=== PATIENT | male | born 1945 | race Caucasian/White ===

== ENCOUNTER 2017-04-02 11:56 | Inpatient (IN) | payer MEDICARE, OTHER ==
[2017-04-02 12:08] VITALS: BP 101/60
[2017-04-02] MEDS ORDERED: Maalox 30 mL Cup PO PRN (12:20)
[2017-04-02] MEDS ORDERED: Magnesium Hydroxide (MOM) 30 mL UDC PO PRN (12:20)
--- NOTE | 2017-04-02 13:06 | Psych History & Physical ---
[facility] Psych History & Physical - Date of Admission Date of Admission: 04/02/17 - Identifying Data Identifying Data: This is a 72-year-old male currently homeless admitted here a 5150 for being gravely disabled. - Chief Complaint Chief Complaint: I do not know Informant: Patient - History of Present Illness History of Present Illness: This is the first psychiatric hospitalization is [facility]. This is a 62-year-old with reported to have been confused and wandering has been diagnosed had been placed on 5150% of the and has been [facility] emergency room where he was possible for stabilization chart is reviewed patient does interview patient continues to be confused and is not able to provide much of any information he has been mentioning that he is okay but tends to fall when concrete surface is not even patient is not currently on any psychotropic medications but however is reported that the patient has been treated for hypertension patient's sleep and appetite went to the hospitalization reported to be poor. - Psychiatric Evaluation Psychiatric Evaluation: CV mental status examination below Psych General Appearance: Older than stated age Psych Behavior: Alert, Cooperative Psych Speech: Normal in Rate and amount, Soft Psych Mood: Frustrated, Irritable Psych Affect: Anxious, Depressed Psych Thought Process: Circumstantial, [place], Tangential Psych Cognition: Confused Psych Insight: Impaired Psych Judgement: Impaired - Past Medical History Psych: Other (none) Current Medications: Current Medications Acetaminophen (Tylenol) 650 mg PO Q4HR PRN PRN Reason: Mild Pain / Temp above 100 Stop: 06/01/17 12:19 Al Hydrox/Mg Hydrox/Simethicone (Maalox) 30 ml PO Q4HR PRN PRN Reason: GI DISTRESS Stop: 06/01/17 12:19 Magnesium Hydroxide (Milk Of Magnesia) 30 ml PO HS PRN PRN Reason: Constipation Multivitamins/Vitamin C (Theragran) 1 tab PO DAILY HECTOR Stop: 06/02/17 08:59 Allergies/Adverse Reactions: Allergies Allergy/AdvReac Type Severity Reaction Status Date / Time No Known Allergies Allergy Verified 04/02/17 12:09 - Family History Family History: No Significant - Social History Social History: Homeless. - ROS Psychological ROS: Anxiety, Concentration difficulty, Irritability, Memory difficulties, Sleep Disturbances Neurological: Confusion - Physical Examination Physical Exam: Physical examination is requested to be done by Dr. Desai - Vitals and I&O Vitals and I&O: Vital Signs Temp Pulse Resp BP 101/60 04/02/17 12:08 Pulse Ox Intake & Output 04/01/17 04/02/17 04/02/17 18:59 06:59 18:59 Weight (lbs) 72.575 kg - Impressions Impressions: Psychosis unspecified [place] I: Dementia and behavioral changes secondary to [place] II: None [place] III: As per Dr. Desai - Treatment/Plan Treatment/Plan: Plan to start the patient on a low-dose of Seroquel to continue Ativan and Ambien on a when necessary basis. Patient is medically provided with individual as well as group counseling's. The shoe caser is going to be involved in finding a placement for this patient is midline to stay is 5-7 days discharge criteria when patient is no longer a threat to self or others thank you this is end of dictation
--- NOTE | 2017-04-02 16:44 | Consultation ---
Consult Note - Consult Note Service Date: 04/02/17 Consult Note: PHYSICIAN Consultation Note: Date of Admission: 04/02/17 Purpose of Consultation: Internal medicine Chief Complaint: Acute psychosis History of Present Illness: 7-3 year old male was reported to be missing. He was found wandering in the street under the the hot weather. He was subsequently brought to [facility]. He underwent extensive workup. He was subsequently transferred to [facility] geropsychiatric unit Past Medical History: Hypertension, Alzheimer dementia, glaucoma Allergies Allergy/AdvReac Type Severity Reaction Status Date / Time No Known Allergies Allergy Verified 04/02/17 12:09 Vital Signs Temp Pulse Resp BP 101/60 04/02/17 12:08 Pulse Ox Intake & Output 04/01/17 04/02/17 04/02/17 18:59 06:59 18:59 Weight (lbs) 72.575 kg Laboratory Results - last 24 hr 04/02/17 15:53 POC Glucose 108 H Current Medications Generic Name Dose Route Start Last Admin Trade Name Freq PRN Reason Stop Dose Admin Acetaminophen 650 mg 04/02/17 12:20 Tylenol PO 06/01/17 12:19 Q4HR PRN Mild Pain / Temp above 100 Al Hydrox/Mg Hydrox/Simethicone 30 ml 04/02/17 12:20 Maalox PO 06/01/17 12:19 Q4HR PRN GI DISTRESS Magnesium Hydroxide 30 ml 04/02/17 12:20 Milk Of Magnesia PO HS PRN Constipation Multivitamins/Vitamin C 1 tab 04/03/17 09:00 Theragran PO 06/02/17 08:59 DAILY HECTOR Quetiapine Fumarate 12.5 mg 04/02/17 21:00 Seroquel PO 06/01/17 20:59 HS HECTOR Protocol Review of Systems: A 12 point ROS was reviewed with the pertinent positive and negatives noted in the HPI. Physical Exam: General: Alert and Oriented X 1, No Acute Distress HEENT: EOMI Bilaterally, PERRLA Bilaterally, Head is normocephalic, small abrasion on bridge of nose. Cardio: +S1/S2 Auscultated, RRR, no murmurs/rubs/gallops noted Respiratory: Clear to Auscultate Bilaterally Abdominal: Soft, Nondistended, Nontender to palpation x 4 quadrants Genital/Urinary: Normal-appearing male genitalia Extremities: No Edema noted in the lower extremities Neurological: No Focal Deficits noted. 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
[2017-04-03 08:10] LABS: ANION GAP 5.7 (7.0-16.0); CARBON DIOXIDE 26.2 mEq/L (21.0-31.0); POTASSIUM SERUM 3.9 mEq/L (3.5-5.1)
[2017-04-03] MEDS: Multivitamin Tab PO SCH (09:09)
--- NOTE | 2017-04-03 10:21 | Psych Progress Note ---
[facility] Psych Progress Note - Intro Date of Progress Note: 04/03/17 - Assessment Assessment: Still depressed. - Vitals, I&O Vitals: Vital Signs - 24 hr 04/02/17 04/02/17 04/02/17 12:08 17:05 18:17 Temp 97.2 F 97.9 F HR 64 72 RR 18 20 BP 101/60 101/60 106/53 O2 Sat % 93 97 I&O: Intake & Output 04/01/17 04/02/17 04/03/17 04/04/17 06:59 06:59 06:59 06:59 Intake Total 600 Balance 600 Weight (lbs) 72.575 kg Medication Education: providede. - ROS ROS: Done Psychological ROS: Report: Anxiety, Depression, Sleep Disturbances Neurological: Report: No Significant - Objective Psych Objective: See below. Psych General Appearance: Report: No acute distress, Older than stated age Psych Behavior: Report: Alert, Calm, Cooperative Psych Speech: Report: Normal in Rate and amount, Soft Psych Mood: Report: Anxious, Depressed, Sad Psych Affect: Report: Anxious, Constricted, Depressed Psych Thought Process: Report: [place], Ruminative Psych Cognition: Report: Confused Psych Insight: Report: Impaired Psych Judgement: Report: Impaired - Plan Plan: as per orders. - Review of Relevant Data Review of Relevant Data: I have reviewed the following items and time jenny (where applicable) has been applied. Psych Data Reviewed: Meds - Diagnosis Diagnosis: Psychosis unspecified. - Medications Current Medications: Current Medications Acetaminophen (Tylenol) 650 mg PO Q4HR PRN PRN Reason: Mild Pain / Temp above 100 Stop: 06/01/17 12:19 Al Hydrox/Mg Hydrox/Simethicone (Maalox) 30 ml PO Q4HR PRN PRN Reason: GI DISTRESS Stop: 06/01/17 12:19 Lorazepam (Ativan) 0.5 mg PO Q4HR PRN; Protocol PRN Reason: Agitation Stop: 06/02/17 07:41 Magnesium Hydroxide (Milk Of Magnesia) 30 ml PO HS PRN PRN Reason: Constipation Multivitamins/Vitamin C (Theragran) 1 tab PO DAILY HECTOR Stop: 06/02/17 08:59 Last Admin: 04/03/17 09:09 Dose: 1 tab Quetiapine Fumarate (Seroquel) 12.5 mg PO HS HECTOR PRN Reason: Protocol Stop: 06/01/17 20:59 Zolpidem Tartrate (Ambien) 5 mg PO HS PRN PRN Reason: Insomnia Stop: 06/02/17 07:44
--- NOTE | 2017-04-03 16:47 | General Progress Note ---
Subjective - Review of Systems Service Date: 04/03/17 Subjective: Remains depressed Objective - Results Result Diagrams: 04/03/17 07:26 Recent Labs: Laboratory Last Values Sodium 134 mEq/L (136-145) L 04/03/17 07:26 Potassium 3.9 mEq/L (3.5-5.1) 04/03/17 07:26 Chloride 106 mEq/L (98-107) 04/03/17 07:26 Carbon Dioxide 26.2 mEq/L (21.0-31.0) 04/03/17 07:26 Anion Gap 5.7 (7.0-16.0) L 04/03/17 07:26 POC Glucose 108 MG/DL (70 - 105) H 04/02/17 15:53 Triglycerides 131 mg/dL (<150) 04/03/17 07:26 Cholesterol 197 mg/dL (<200) 04/03/17 07:26 LDL Cholesterol Direct 135 mg/dL (75-193) 04/03/17 07:26 HDL Cholesterol 32 mg/dL (23-92) 04/03/17 07:26 TSH 1.16 uIU/ml (0.34-5.60) 04/03/17 07:26 - Physical Exam Vitals and I&O: Vital Signs Temp 97.9 F 04/02/17 18:17 Pulse 65 04/03/17 15:46 Resp 18 04/03/17 15:46 BP 106/53 04/02/17 18:17 Pulse Ox 97 04/02/17 18:17 Intake & Output 04/02/17 04/03/17 04/03/17 18:59 06:59 18:59 Intake Total 600 Balance 600 Weight (lbs) 72.575 kg Intake: Oral 600 Other: # Voids 3 # Bowel Movements 0 Active Medications: Current Medications Acetaminophen (Tylenol) 650 mg PO Q4HR PRN PRN Reason: Mild Pain / Temp above 100 Stop: 06/01/17 12:19 Al Hydrox/Mg Hydrox/Simethicone (Maalox) 30 ml PO Q4HR PRN PRN Reason: GI DISTRESS Stop: 06/01/17 12:19 Lorazepam (Ativan) 0.5 mg PO Q4HR PRN; Protocol PRN Reason: Agitation Stop: 06/02/17 07:41 Magnesium Hydroxide (Milk Of Magnesia) 30 ml PO HS PRN PRN Reason: Constipation Multivitamins/Vitamin C (Theragran) 1 tab PO DAILY HECTOR Stop: 06/02/17 08:59 Last Admin: 04/03/17 09:09 Dose: 1 tab Quetiapine Fumarate (Seroquel) 12.5 mg PO HS HECTOR PRN Reason: Protocol Stop: 06/01/17 20:59 Zolpidem Tartrate (Ambien) 5 mg PO HS PRN PRN Reason: Insomnia Stop: 06/02/17 07:44 General: Alert, No acute distress HEENT: Atraumatic, PERRLA, EOMI, Mucous membr. moist/pink Neck: Supple, +2 carotid pulse wo bruit Cardiovascular: Regular rate, Normal S1, Normal S2 Lungs: Clear to auscultation Abdomen: Bowel sounds, Soft Extremities: no Edema Neurological: Sensation intact Skin: no Rash Psych/Mental Status: Other (depressed) Assessment/Plan - Assessment Assessment: Acute decompensation of psychosis Essential hypertension Dementia with behavior modification Glaucoma Essential hypertension Acute kidney injury-resolved - Plan Plan: Lab - Result Diagrams 04/03/17 07:26 Current Medications Acetaminophen (Tylenol) 650 mg PO Q4HR PRN PRN Reason: Mild Pain / Temp above 100 Stop: 06/01/17 12:19 Al Hydrox/Mg Hydrox/Simethicone (Maalox) 30 ml PO Q4HR PRN PRN Reason: GI DISTRESS Stop: 06/01/17 12:19 Lorazepam (Ativan) 0.5 mg PO Q4HR PRN; Protocol PRN Reason: Agitation Stop: 06/02/17 07:41 Magnesium Hydroxide (Milk Of Magnesia) 30 ml PO HS PRN PRN Reason: Constipation Multivitamins/Vitamin C (Theragran) 1 tab PO DAILY HECTOR Stop: 06/02/17 08:59 Last Admin: 04/03/17 09:09 Dose: 1 tab Quetiapine Fumarate (Seroquel) 12.5 mg PO HS HECTOR PRN Reason: Protocol Stop: 06/01/17 20:59 Zolpidem Tartrate (Ambien) 5 mg PO HS PRN PRN Reason: Insomnia Stop: 06/02/17 07:44 Remains clinically stable Continue psych meds
[2017-04-04 08:42] LABS: % BASOPHILS 0.5 % (0.0-2.0); % EOSINOPHILS 1.6 % (0.0-5.0); % LYMPHOCYTES 24.3 % (20.0-50.0); % MONOCYTES 8.7 % (2.0-10.0); % NEUTROPHILS 64.9 % (40.0-80.0); HEMATOCRIT 35.3 % (39.0-49.0); MEAN CELL VOLUME 89.5 fl (80-99); MEAN CORPUSCULAR HEMOGLOBIN 30.4 pg (27.0-31.0); MEAN PLATELET VOLUME 8.4 fl; NEUTROPHILE ABSOLUTE 3.5 Th/cmm (1.8-8.0); PLATELET COUNT 148 Th/cmm (150-400); RED BLOOD COUNT 3.95 Mil/cmm (3.80-5.80); RED CELL DISTRIBUTION WIDTH 12.8 % (11.5-20.0); WHITE BLOOD COUNT 5.4 Th/cmm (4.8-10.8)
[2017-04-04 09:06] LABS: ALB/GLOB RATIO 1.6 (1.0-1.8); ALKALINE PHOSPHATASE 52 U/L (34-104); ANION GAP 8.1 (7.0-16.0); BILIRUBIN,TOTAL 0.3 mg/dL (0.3-1.0); BUN - UREA NITROGEN 20 mg/dL (7-25); BUN/CREATININE RATIO 22.2; CALCIUM SERUM 8.6 mg/dL (8.6-10.3); CHLORIDE 106 mEq/L (98-107); CREATININE - SERUM 0.9 mg/dL (0.7-1.3); GLUCOSE 88 mg/dL (70-105); POTASSIUM SERUM 4.1 mEq/L (3.5-5.1); SGOT 19 U/L (13-39); SGPT/ALT 13 U/L (7-52); SODIUM SERUM 136 mEq/L (136-145)
--- NOTE | 2017-04-04 09:19 | Psych Progress Note ---
[facility] Psych Progress Note - Intro Date of Progress Note: 04/04/17 - Assessment Assessment: I am depressed. - Vitals, I&O Vitals: Vital Signs - 24 hr 04/03/17 04/03/17 04/04/17 15:46 20:00 05:22 Temp 98.5 F 97.5 F HR 74 57 HR [Left Radial 65 ] RR 18 19 20 BP 98/61 91/53 O2 Sat % 96 95 I&O: Intake & Output 04/02/17 04/03/17 04/04/17 04/05/17 06:59 06:59 06:59 06:59 Intake Total 600 Balance 600 Weight (lbs) 72.575 kg - ROS Psychological ROS: Report: Anxiety, Depression, Memory difficulties, Sleep Disturbances Neurological: Report: No Significant - Objective Psych General Appearance: Report: No acute distress, Older than stated age Psych Behavior: Report: Alert, Cooperative Psych Speech: Report: Delayed, Soft Psych Mood: Report: Anxious, Depressed Psych Affect: Report: Anxious, Depressed Psych Thought Process: Report: Circumstantial Psych Cognition: Report: Confused Psych Insight: Report: Impaired Psych Judgement: Report: Impaired - Plan Plan: To continue current meds and follow up. - Review of Relevant Data Review of Relevant Data: I have reviewed the following items and time jenny (where applicable) has been applied. Psych Data Reviewed: Meds - Diagnosis Diagnosis: Psychosis - Medications Current Medications: Current Medications Acetaminophen (Tylenol) 650 mg PO Q4HR PRN PRN Reason: Mild Pain / Temp above 100 Stop: 06/01/17 12:19 Al Hydrox/Mg Hydrox/Simethicone (Maalox) 30 ml PO Q4HR PRN PRN Reason: GI DISTRESS Stop: 06/01/17 12:19 Lorazepam (Ativan) 0.5 mg PO Q4HR PRN; Protocol PRN Reason: Agitation Stop: 06/02/17 07:41 Magnesium Hydroxide (Milk Of Magnesia) 30 ml PO HS PRN PRN Reason: Constipation Multivitamins/Vitamin C (Theragran) 1 tab PO DAILY HECTOR Stop: 06/02/17 08:59 Last Admin: 04/03/17 09:09 Dose: 1 tab Quetiapine Fumarate (Seroquel) 12.5 mg PO HS HECTOR PRN Reason: Protocol Stop: 06/01/17 20:59 Last Admin: 04/03/17 20:40 Dose: 12.5 mg Zolpidem Tartrate (Ambien) 5 mg PO HS PRN PRN Reason: Insomnia Stop: 06/02/17 07:44
[2017-04-04] MEDS: Multivitamin Tab PO SCH (10:28)
[2017-04-04 12:10] LABS: HEP B CORE IGM Negative (Negative); HEP C ANTIBODY <0.1 s/co ratio (0.0-0.9)
[2017-04-05] MEDS: Multivitamin Tab PO SCH (09:15)
--- NOTE | 2017-04-05 10:56 | Psych Progress Note ---
[facility] Psych Progress Note - Intro Date of Progress Note: 04/05/17 - Assessment Assessment: I am depressed. - Vitals, I&O Vitals: Vital Signs - 24 hr 04/04/17 04/04/17 04/05/17 14:49 20:00 06:31 Temp 97.3 F 97 F 98 F HR 76 60 70 RR 18 19 20 BP 112/68 95/59 97/56 O2 Sat % 96 97 95 I&O: Intake & Output 04/03/17 04/04/17 04/05/17 04/06/17 06:59 06:59 06:59 06:59 Intake Total 600 1920 Balance 600 1920 Weight (lbs) 72.575 kg - ROS Psychological ROS: Report: Anxiety, Depression, Memory difficulties Neurological: Report: Confusion - Objective Psych Behavior: Report: Alert, Calm Psych Speech: Report: Normal in Rate and amount Psych Mood: Report: Depressed Psych Affect: Report: Anxious, Constricted, Depressed Psych Thought Process: Report: Circumstantial, [place] Psych Cognition: Report: Confused, Short term memory impairment Psych Insight: Report: Impaired Psych Judgement: Report: Impaired - Plan Plan: To continue current meds and follow up. - Review of Relevant Data Review of Relevant Data: I have reviewed the following items and time jenny (where applicable) has been applied. Psych Data Reviewed: Meds - Diagnosis Diagnosis: Psychosis - Medications Current Medications: Current Medications Acetaminophen (Tylenol) 650 mg PO Q4HR PRN PRN Reason: Mild Pain / Temp above 100 Stop: 06/01/17 12:19 Al Hydrox/Mg Hydrox/Simethicone (Maalox) 30 ml PO Q4HR PRN PRN Reason: GI DISTRESS Stop: 06/01/17 12:19 Lorazepam (Ativan) 0.5 mg PO Q4HR PRN; Protocol PRN Reason: Agitation Stop: 06/02/17 07:41 Magnesium Hydroxide (Milk Of Magnesia) 30 ml PO HS PRN PRN Reason: Constipation Multivitamins/Vitamin C (Theragran) 1 tab PO DAILY HECTOR Stop: 06/02/17 08:59 Last Admin: 04/05/17 09:15 Dose: 1 tab Mupirocin (Bactroban Oint) 1 appl NS BID HECTOR Stop: 04/09/17 17:01 Last Admin: 04/05/17 09:16 Dose: 1 appl Quetiapine Fumarate (Seroquel) 12.5 mg PO HS HECTOR PRN Reason: Protocol Stop: 06/01/17 20:59 Last Admin: 04/04/17 20:24 Dose: 12.5 mg Zolpidem Tartrate (Ambien) 5 mg PO HS PRN PRN Reason: Insomnia Stop: 06/02/17 07:44
[2017-04-06] MEDS: Multivitamin Tab PO SCH (08:29)
--- NOTE | 2017-04-06 10:47 | Psych Progress Note ---
[facility] Psych Progress Note - Intro Date of Progress Note: 04/06/17 - Assessment Assessment: I am depressed. - Vitals, I&O Vitals: Vital Signs - 24 hr 04/05/17 04/05/17 04/06/17 10:57 20:00 06:33 Temp 97.6 F HR 72 RR 20 20 20 BP 98/62 O2 Sat % 96 I&O: Intake & Output 04/04/17 04/05/17 04/06/17 04/07/17 06:59 06:59 06:59 06:59 Intake Total 1920 120 Balance 1920 120 - ROS Psychological ROS: Report: Anxiety, Depression, Irritability - Objective Psych General Appearance: Report: No acute distress, Older than stated age Psych Behavior: Report: Alert, Cooperative Psych Speech: Report: Normal in Rate and amount, Soft Psych Mood: Report: Anxious, Depressed Psych Affect: Report: [place] content of speech, Sad Psych Thought Process: Report: Circumstantial Psych Cognition: Report: Confused Psych Insight: Report: Impaired Psych Judgement: Report: Impaired - Plan Plan: To continue current meds and increase the dose of Seroquel. - Review of Relevant Data Review of Relevant Data: I have reviewed the following items and time jenny (where applicable) has been applied. Psych Data Reviewed: Meds - Diagnosis Diagnosis: Psychosis - Medications Current Medications: Current Medications Acetaminophen (Tylenol) 650 mg PO Q4HR PRN PRN Reason: Mild Pain / Temp above 100 Stop: 06/01/17 12:19 Al Hydrox/Mg Hydrox/Simethicone (Maalox) 30 ml PO Q4HR PRN PRN Reason: GI DISTRESS Stop: 06/01/17 12:19 Lorazepam (Ativan) 0.5 mg PO Q4HR PRN; Protocol PRN Reason: Agitation Stop: 06/02/17 07:41 Magnesium Hydroxide (Milk Of Magnesia) 30 ml PO HS PRN PRN Reason: Constipation Multivitamins/Vitamin C (Theragran) 1 tab PO DAILY HECTOR Stop: 06/02/17 08:59 Last Admin: 04/06/17 08:29 Dose: 1 tab Mupirocin (Bactroban Oint) 1 appl NS BID HECTOR Stop: 04/09/17 17:01 Last Admin: 04/06/17 08:29 Dose: 1 appl Quetiapine Fumarate (Seroquel) 25 mg PO HS HECTOR PRN Reason: Protocol Stop: 06/01/17 20:59 Zolpidem Tartrate (Ambien) 5 mg PO HS PRN PRN Reason: Insomnia Stop: 06/02/17 07:44
[2017-04-07] MEDS: Multivitamin Tab PO SCH (08:25)
--- NOTE | 2017-04-07 12:19 | Psych Progress Note ---
[facility] Psych Progress Note - Intro Date of Progress Note: 04/07/17 - Assessment Assessment: Still depressed. - Vitals, I&O Vitals: Vital Signs - 24 hr 04/06/17 04/06/17 04/07/17 14:00 19:57 05:46 Temp 97.8 F 98.1 F 98.1 F HR 90 81 62 RR 20 20 19 BP 103/57 110/66 90/53 O2 Sat % 97 95 94 I&O: Intake & Output 04/05/17 04/06/17 04/07/17 04/08/17 06:59 06:59 06:59 06:59 Intake Total 4570 055 2536 Balance 1446 651 0865 - ROS ROS: Done Psychological ROS: Report: Anxiety, Depression, Sleep Disturbances Neurological: Report: Gait Disturbance, Memory Loss - Objective Psych Objective: See below. Psych General Appearance: Report: No acute distress, Older than stated age Psych Behavior: Report: Alert, Calm, Cooperative Psych Speech: Report: Normal in Rate and amount, Soft Psych Mood: Report: Anxious, Depressed, Sad Psych Affect: Report: Anxious, Constricted, Depressed Psych Thought Process: Report: [place], Ruminative Psych Cognition: Report: Confused Psych Insight: Report: Impaired Psych Judgement: Report: Impaired - Plan Plan: Plan to contine curent meds and follow up. - Review of Relevant Data Review of Relevant Data: I have reviewed the following items and time jenny (where applicable) has been applied. Psych Data Reviewed: Meds - Medications Current Medications: Current Medications Acetaminophen (Tylenol) 650 mg PO Q4HR PRN PRN Reason: Mild Pain / Temp above 100 Stop: 06/01/17 12:19 Al Hydrox/Mg Hydrox/Simethicone (Maalox) 30 ml PO Q4HR PRN PRN Reason: GI DISTRESS Stop: 06/01/17 12:19 Lorazepam (Ativan) 0.5 mg PO Q4HR PRN; Protocol PRN Reason: Agitation Stop: 06/02/17 07:41 Magnesium Hydroxide (Milk Of Magnesia) 30 ml PO HS PRN PRN Reason: Constipation Multivitamins/Vitamin C (Theragran) 1 tab PO DAILY HECOTR Stop: 06/02/17 08:59 Last Admin: 04/07/17 08:25 Dose: 1 tab Mupirocin (Bactroban Oint) 1 appl NS BID HECTOR Stop: 04/09/17 17:01 Last Admin: 04/07/17 08:26 Dose: 1 appl Quetiapine Fumarate (Seroquel) 25 mg PO HS HECTOR PRN Reason: Protocol Stop: 06/01/17 20:59 Last Admin: 04/06/17 21:16 Dose: 25 mg Zolpidem Tartrate (Ambien) 5 mg PO HS PRN PRN Reason: Insomnia Stop: 06/02/17 07:44
[2017-04-08] MEDS: Multivitamin Tab PO SCH (08:08)
--- NOTE | 2017-04-08 09:37 | Psych Progress Note ---
[facility] Psych Progress Note - Intro Date of Progress Note: 04/08/17 - Assessment Assessment: Still depressed and confused. - Vitals, I&O Vitals: Vital Signs - 24 hr 04/07/17 04/07/17 04/08/17 14:00 20:51 07:00 Temp 97.9 F 97.3 F 98.2 F HR 71 73 89 RR 20 20 19 BP 107/61 116/69 95/52 O2 Sat % 96 18 97 I&O: Intake & Output 04/06/17 04/07/17 04/08/17 04/09/17 06:59 06:59 06:59 06:59 Intake Total 120 1180 1000 Balance 120 1180 1000 - ROS ROS: Done Psychological ROS: Report: Anxiety, Depression, Sleep Disturbances Neurological: Report: Gait Disturbance, Memory Loss - Objective Psych Objective: See below. Psych General Appearance: Report: No acute distress, Older than stated age Psych Behavior: Report: Alert, Calm, Cooperative Psych Speech: Report: Normal in Rate and amount, Soft Psych Mood: Report: Anxious, Depressed, Sad Psych Affect: Report: Anxious, Constricted, Depressed Psych Thought Process: Report: [place], Ruminative Psych Cognition: Report: Confused Psych Insight: Report: Impaired Psych Judgement: Report: Impaired - Plan Plan: Plan to continue supportive tx and current meds. Patient is awaiting placement. - Review of Relevant Data Review of Relevant Data: I have reviewed the following items and time jenny (where applicable) has been applied. Psych Data Reviewed: Meds - Medications Current Medications: Current Medications Acetaminophen (Tylenol) 650 mg PO Q4HR PRN PRN Reason: Mild Pain / Temp above 100 Stop: 06/01/17 12:19 Al Hydrox/Mg Hydrox/Simethicone (Maalox) 30 ml PO Q4HR PRN PRN Reason: GI DISTRESS Stop: 06/01/17 12:19 Lorazepam (Ativan) 0.5 mg PO Q4HR PRN; Protocol PRN Reason: Agitation Stop: 06/02/17 07:41 Magnesium Hydroxide (Milk Of Magnesia) 30 ml PO HS PRN PRN Reason: Constipation Multivitamins/Vitamin C (Theragran) 1 tab PO DAILY HECTOR Stop: 06/02/17 08:59 Last Admin: 04/08/17 08:08 Dose: 1 tab Mupirocin (Bactroban Oint) 1 appl NS BID HECTOR Stop: 04/09/17 17:01 Last Admin: 04/08/17 08:08 Dose: 1 appl Quetiapine Fumarate (Seroquel) 25 mg PO HS HECTOR PRN Reason: Protocol Stop: 06/01/17 20:59 Last Admin: 04/07/17 21:05 Dose: 25 mg Zolpidem Tartrate (Ambien) 5 mg PO HS PRN PRN Reason: Insomnia Stop: 06/02/17 07:44
[2017-04-09] MEDS: Multivitamin Tab PO SCH (08:37)
--- NOTE | 2017-04-09 12:49 | Psych Progress Note ---
[facility] Psych Progress Note - Intro Date of Progress Note: 04/09/17 - Assessment Assessment: Reports to be doing a little better. - Vitals, I&O Vitals: Vital Signs - 24 hr 04/08/17 04/09/17 15:48 06:57 Temp 97.8 F 97.5 F HR 68 72 RR 20 19 BP 109/57 106/55 O2 Sat % 97 97 I&O: Intake & Output 04/07/17 04/08/17 04/09/17 04/10/17 06:59 06:59 06:59 06:59 Intake Total 1180 1000 950 Balance 1180 1000 950 - ROS ROS: Done Psychological ROS: Report: Anxiety, Depression, Sleep Disturbances Neurological: Report: Gait Disturbance, Memory Loss - Objective Psych Objective: See below. Psych General Appearance: Report: No acute distress, Older than stated age, Disheveled Psych Behavior: Report: Alert, Calm, Cooperative Psych Speech: Report: Normal in Rate and amount, Soft Psych Mood: Report: Anxious, Depressed, Pensive, Sad Psych Affect: Report: Anxious, Constricted, DEPRESSED Psych Thought Process: Report: Paranoid, Confabulation Psych Cognition: Report: Confused Psych Insight: Report: Impaired Psych Judgement: Report: Impaired - Plan Plan: Plan to continue supportive tx and current meds. Patient is awaiting placement. - Review of Relevant Data Review of Relevant Data: I have reviewed the following items and time jenny (where applicable) has been applied. Psych Data Reviewed: Meds - Medications Current Medications: Current Medications Acetaminophen (Tylenol) 650 mg PO Q4HR PRN PRN Reason: Mild Pain / Temp above 100 Stop: 06/01/17 12:19 Al Hydrox/Mg Hydrox/Simethicone (Maalox) 30 ml PO Q4HR PRN PRN Reason: GI DISTRESS Stop: 06/01/17 12:19 Lorazepam (Ativan) 0.5 mg PO Q4HR PRN; Protocol PRN Reason: Agitation Stop: 06/02/17 07:41 Magnesium Hydroxide (Milk Of Magnesia) 30 ml PO HS PRN PRN Reason: Constipation Multivitamins/Vitamin C (Theragran) 1 tab PO DAILY HECTOR Stop: 06/02/17 08:59 Last Admin: 04/09/17 08:37 Dose: 1 tab Mupirocin (Bactroban Oint) 1 appl NS BID HECTOR Stop: 04/09/17 17:01 Last Admin: 04/09/17 08:37 Dose: 1 appl Quetiapine Fumarate (Seroquel) 25 mg PO HS HECTOR PRN Reason: Protocol Stop: 06/01/17 20:59 Last Admin: 04/08/17 21:04 Dose: 25 mg Zolpidem Tartrate (Ambien) 5 mg PO HS PRN PRN Reason: Insomnia Stop: 06/02/17 07:44
[2017-04-10] MEDS: Multivitamin Tab PO SCH (08:47)
--- NOTE | 2017-04-10 10:45 | Psych Progress Note ---
[facility] Psych Progress Note - Intro Date of Progress Note: 04/10/17 - Assessment Assessment: I am okay. - Vitals, I&O Vitals: Vital Signs - 24 hr 04/09/17 04/10/17 20:51 07:01 Temp 97 F 97.6 F HR 73 70 RR 18 18 BP 104/58 108/63 O2 Sat % 97 97 I&O: Intake & Output 04/08/17 04/09/17 04/10/17 04/11/17 06:59 06:59 06:59 06:59 Intake Total 1000 950 Balance 1000 950 - ROS ROS: Done Psychological ROS: Report: Anxiety, Depression, Sleep Disturbances Neurological: Report: Gait Disturbance, Memory Loss - Objective Psych Objective: See below. Psych General Appearance: Report: No acute distress, Older than stated age, Disheveled Psych Behavior: Report: Alert, Calm, Cooperative Psych Speech: Report: Normal in Rate and amount, Soft Psych Mood: Report: Anxious, Dysthymic, Sad Psych Affect: Report: Anxious, Constricted, Mood-congruent Psych Thought Process: Report: Paranoid, Confabulation Psych Cognition: Report: Confused Psych Insight: Report: Impaired Psych Judgement: Report: Impaired - Plan Plan: Plan to continue supportive tx and current meds. Patient is awaiting placement. - Review of Relevant Data Review of Relevant Data: I have reviewed the following items and time jenny (where applicable) has been applied. Psych Data Reviewed: Meds - Medications Current Medications: Current Medications Acetaminophen (Tylenol) 650 mg PO Q4HR PRN PRN Reason: Mild Pain / Temp above 100 Stop: 06/01/17 12:19 Al Hydrox/Mg Hydrox/Simethicone (Maalox) 30 ml PO Q4HR PRN PRN Reason: GI DISTRESS Stop: 06/01/17 12:19 Lorazepam (Ativan) 0.5 mg PO Q4HR PRN; Protocol PRN Reason: Agitation Stop: 06/02/17 07:41 Magnesium Hydroxide (Milk Of Magnesia) 30 ml PO HS PRN PRN Reason: Constipation Multivitamins/Vitamin C (Theragran) 1 tab PO DAILY HECTOR Stop: 06/02/17 08:59 Last Admin: 04/10/17 08:47 Dose: 1 tab Quetiapine Fumarate (Seroquel) 25 mg PO HS HECTOR PRN Reason: Protocol Stop: 06/01/17 20:59 Last Admin: 04/09/17 20:52 Dose: 25 mg Zolpidem Tartrate (Ambien) 5 mg PO HS PRN PRN Reason: Insomnia Stop: 06/02/17 07:44
[2017-04-11] MEDS: Multivitamin Tab PO SCH (08:28)
--- NOTE | 2017-04-11 09:41 | Psych Progress Note ---
[facility] Psych Progress Note - Intro Date of Progress Note: 04/11/17 - Assessment Assessment: I am okay. - Vitals, I&O Vitals: Vital Signs - 24 hr 04/10/17 04/10/17 04/10/17 14:00 15:43 20:00 Temp 98 F HR 66 HR [Left Radial 70 70 ] RR 20 18 18 BP 88/57 O2 Sat % 100 04/11/17 06:33 Temp 97.1 F HR 80 HR [Left Radial ] RR 20 BP 92/59 O2 Sat % 95 I&O: Intake & Output 04/09/17 04/10/17 04/11/17 04/12/17 06:59 06:59 06:59 06:59 Intake Total 950 1920 Balance 950 1920 - ROS ROS: Done Psychological ROS: Report: Anxiety, Depression, Sleep Disturbances Neurological: Report: Gait Disturbance, Memory Loss - Objective Psych Objective: See below. Psych General Appearance: Report: No acute distress, Older than stated age, Disheveled Psych Behavior: Report: Alert, Calm, Cooperative Psych Speech: Report: Normal in Rate and amount, Soft Psych Mood: Report: Anxious, Dysthymic, Sad Psych Affect: Report: Anxious, Constricted, Mood-congruent Psych Thought Process: Report: Paranoid, Confabulation Psych Cognition: Report: Confused Psych Insight: Report: Impaired Psych Judgement: Report: Impaired - Plan Plan: Plan to continue supportive tx and current meds. Patient is awaiting placement. - Review of Relevant Data Review of Relevant Data: I have reviewed the following items and time jenny (where applicable) has been applied. Psych Data Reviewed: Meds - Medications Current Medications: Current Medications Acetaminophen (Tylenol) 650 mg PO Q4HR PRN PRN Reason: Mild Pain / Temp above 100 Stop: 06/01/17 12:19 Al Hydrox/Mg Hydrox/Simethicone (Maalox) 30 ml PO Q4HR PRN PRN Reason: GI DISTRESS Stop: 06/01/17 12:19 Magnesium Hydroxide (Milk Of Magnesia) 30 ml PO HS PRN PRN Reason: Constipation Multivitamins/Vitamin C (Theragran) 1 tab PO DAILY HECTOR Stop: 06/02/17 08:59 Last Admin: 04/11/17 08:28 Dose: 1 tab Quetiapine Fumarate (Seroquel) 25 mg PO HS HECTOR PRN Reason: Protocol Stop: 06/01/17 20:59 Last Admin: 04/10/17 20:14 Dose: 25 mg
[2017-04-12] MEDS: Multivitamin Tab PO SCH (08:34)
--- NOTE | 2017-04-12 18:34 | Psych Progress Note ---
Psych Progress Note - Intro Date of Progress Note: 04/12/17 - Assessment Assessment: I am okay. I need a place to stay. - Vitals, I&O Vitals: Vital Signs - 24 hr 04/11/17 04/12/17 04/12/17 20:53 05:52 16:00 Temp 98.3 F 98.2 F 98.4 F HR 83 64 67 RR 18 20 20 BP 118/68 101/57 103/52 O2 Sat % 96 95 96 I&O: Intake & Output 04/10/17 04/11/17 04/12/17 04/13/17 06:59 06:59 06:59 06:59 Intake Total 1920 1180 950 Balance 1920 1180 950 - ROS ROS: Done Psychological ROS: Report: Anxiety, Depression, Sleep Disturbances Neurological: Report: Gait Disturbance, Memory Loss - Objective Psych Objective: See below. Psych General Appearance: Report: No acute distress, Older than stated age, Disheveled Psych Behavior: Report: Alert, Calm, Cooperative Psych Speech: Report: Normal in Rate and amount, Soft Psych Mood: Report: Angry, Dysthymic, Irritable Psych Affect: Report: Anxious, Constricted, Mood-congruent Psych Thought Process: Report: Paranoid, Confabulation Psych Cognition: Report: Unchanged from previous exam Psych Insight: Report: Impaired Psych Judgement: Report: Impaired - Plan Plan: Plan to continue supportive tx and current meds. Patient is awaiting placement. - Review of Relevant Data Review of Relevant Data: I have reviewed the following items and time jenny (where applicable) has been applied. Psych Data Reviewed: Meds - Medications Current Medications: Current Medications Acetaminophen (Tylenol) 650 mg PO Q4HR PRN PRN Reason: Mild Pain / Temp above 100 Stop: 06/01/17 12:19 Al Hydrox/Mg Hydrox/Simethicone (Maalox) 30 ml PO Q4HR PRN PRN Reason: GI DISTRESS Stop: 06/01/17 12:19 Magnesium Hydroxide (Milk Of Magnesia) 30 ml PO HS PRN PRN Reason: Constipation Multivitamins/Vitamin C (Theragran) 1 tab PO DAILY HECTOR Stop: 06/02/17 08:59 Last Admin: 04/12/17 08:34 Dose: 1 tab Quetiapine Fumarate (Seroquel) 25 mg PO HS HECTOR PRN Reason: Protocol Stop: 06/01/17 20:59 Last Admin: 04/11/17 21:19 Dose: 25 mg
[2017-04-13] MEDS: Multivitamin Tab PO SCH (09:41)
--- NOTE | 2017-04-13 19:28 | Psych Progress Note ---
Psych Progress Note - Intro Date of Progress Note: 04/13/17 - Assessment Assessment: I am okay. - Vitals, I&O Vitals: Vital Signs - 24 hr 04/12/17 04/13/17 04/13/17 20:05 05:47 14:00 Temp 97.5 F 97.6 F 98.2 F HR 77 64 77 RR 20 20 19 BP 101/59 92/56 102/57 O2 Sat % 94 95 97 I&O: Intake & Output 04/11/17 04/12/17 04/13/17 04/14/17 06:59 06:59 06:59 06:59 Intake Total 1920 1180 1090 1100 Balance 1920 1180 1090 1100 - ROS ROS: Done Psychological ROS: Report: Anxiety, Depression, Sleep Disturbances Neurological: Report: Gait Disturbance, Memory Loss - Objective Psych Objective: See below. Psych General Appearance: Report: No acute distress, Older than stated age, Casually dressed, Clean Psych Behavior: Report: Alert, Calm, Cooperative Psych Speech: Report: Normal in Rate and amount, Soft Psych Mood: Report: Angry, Dysthymic Psych Affect: Report: Anxious, Mood-congruent Psych Thought Process: Report: Paranoid, Confabulation Psych Cognition: Report: Grossly Intact, Unchanged from previous exam Psych Insight: Report: Fair Psych Judgement: Report: Fair - Plan Plan: Plan to continue supportive tx and current meds. Patient is awaiting placement. - Review of Relevant Data Review of Relevant Data: I have reviewed the following items and time jenny (where applicable) has been applied. Psych Data Reviewed: Meds - Medications Current Medications: Current Medications Acetaminophen (Tylenol) 650 mg PO Q4HR PRN PRN Reason: Mild Pain / Temp above 100 Stop: 06/01/17 12:19 Al Hydrox/Mg Hydrox/Simethicone (Maalox) 30 ml PO Q4HR PRN PRN Reason: GI DISTRESS Stop: 06/01/17 12:19 Magnesium Hydroxide (Milk Of Magnesia) 30 ml PO HS PRN PRN Reason: Constipation Multivitamins/Vitamin C (Theragran) 1 tab PO DAILY HECTOR Stop: 06/02/17 08:59 Last Admin: 04/13/17 09:41 Dose: Not Given Quetiapine Fumarate (Seroquel) 25 mg PO HS HECTOR PRN Reason: Protocol Stop: 06/01/17 20:59 Last Admin: 04/12/17 20:50 Dose: 25 mg
[2017-04-14] MEDS: Multivitamin Tab PO SCH (08:56)
--- NOTE | 2017-04-14 12:03 | Psych Progress Note ---
Psych Progress Note - Intro Date of Progress Note: 04/14/17 - Assessment Assessment: I am okay. - Vitals, I&O Vitals: Vital Signs - 24 hr 04/13/17 04/14/17 14:00 07:05 Temp 98.2 F 98 F HR 77 61 RR 19 18 BP 102/57 89/56 O2 Sat % 97 97 I&O: Intake & Output 04/12/17 04/13/17 04/14/17 04/15/17 06:59 06:59 06:59 06:59 Intake Total 1180 1090 1100 Balance 1180 1090 1100 Medication Education: Done. - ROS ROS: Done Psychological ROS: Report: Anxiety, Depression, Sleep Disturbances Neurological: Report: Gait Disturbance, Memory Loss - Objective Psych Objective: See below. Psych General Appearance: Report: No acute distress, Older than stated age, Casually dressed, Clean Psych Behavior: Report: Alert, Calm, Cooperative Psych Speech: Report: Normal in Rate and amount, Soft Psych Mood: Report: Angry, Dysthymic Psych Affect: Report: Anxious, Mood-congruent Psych Thought Process: Report: Paranoid, Confabulation Psych Cognition: Report: Grossly Intact, Unchanged from previous exam Psych Insight: Report: Fair Psych Judgement: Report: Fair - Plan Plan: Plan to continue supportive tx and current meds. Patient is awaiting placement. - Review of Relevant Data Review of Relevant Data: I have reviewed the following items and time jenny (where applicable) has been applied. Psych Data Reviewed: Meds - Medications Current Medications: Current Medications Acetaminophen (Tylenol) 650 mg PO Q4HR PRN PRN Reason: Mild Pain / Temp above 100 Stop: 06/01/17 12:19 Al Hydrox/Mg Hydrox/Simethicone (Maalox) 30 ml PO Q4HR PRN PRN Reason: GI DISTRESS Stop: 06/01/17 12:19 Magnesium Hydroxide (Milk Of Magnesia) 30 ml PO HS PRN PRN Reason: Constipation Multivitamins/Vitamin C (Theragran) 1 tab PO DAILY HECTOR Stop: 06/02/17 08:59 Last Admin: 04/14/17 08:56 Dose: 1 tab Quetiapine Fumarate (Seroquel) 25 mg PO HS HECTOR PRN Reason: Protocol Stop: 06/01/17 20:59 Last Admin: 04/13/17 21:52 Dose: 25 mg
[2017-04-15] MEDS: Multivitamin Tab PO SCH (09:11)
--- NOTE | 2017-04-15 09:13 | Psych Progress Note ---
Psych Progress Note - Intro Date of Progress Note: 04/15/17 - Assessment Assessment: I am okay. - Vitals, I&O Vitals: Vital Signs - 24 hr 04/14/17 04/15/17 14:00 07:17 Temp 97.4 F 98.7 F HR 66 64 RR 18 97 BP 100/56 86/62 O2 Sat % 95 18 I&O: Intake & Output 04/13/17 04/14/17 04/15/17 04/16/17 06:59 06:59 06:59 06:59 Intake Total 1090 1100 800 Balance 1090 1100 800 - ROS ROS: Done Psychological ROS: Report: Anxiety, Depression, Sleep Disturbances Neurological: Report: Gait Disturbance, Memory Loss - Objective Psych Objective: See below. Psych General Appearance: Report: No acute distress, Older than stated age, Casually dressed, Clean Psych Behavior: Report: Alert, Calm, Cooperative Psych Speech: Report: Normal in Rate and amount, Soft Psych Mood: Report: Angry, Dysthymic Psych Affect: Report: Anxious, Mood-congruent Psych Thought Process: Report: Paranoid, Confabulation Psych Cognition: Report: Grossly Intact, Unchanged from previous exam Psych Insight: Report: Fair Psych Judgement: Report: Fair - Plan Plan: Plan to continue supportive tx and current meds. Patient is awaiting placement. case coordinator is reporting that placement is a possibility today. - Review of Relevant Data Review of Relevant Data: I have reviewed the following items and time jenny (where applicable) has been applied. Psych Data Reviewed: Meds - Medications Current Medications: Current Medications Acetaminophen (Tylenol) 650 mg PO Q4HR PRN PRN Reason: Mild Pain / Temp above 100 Stop: 06/01/17 12:19 Al Hydrox/Mg Hydrox/Simethicone (Maalox) 30 ml PO Q4HR PRN PRN Reason: GI DISTRESS Stop: 06/01/17 12:19 Magnesium Hydroxide (Milk Of Magnesia) 30 ml PO HS PRN PRN Reason: Constipation Multivitamins/Vitamin C (Theragran) 1 tab PO DAILY HECTOR Stop: 06/02/17 08:59 Last Admin: 04/15/17 09:11 Dose: 1 tab Quetiapine Fumarate (Seroquel) 25 mg PO HS HECTOR PRN Reason: Protocol Stop: 06/01/17 20:59 Last Admin: 04/14/17 21:03 Dose: 25 mg
== END 2017-04-15 15:15 | DRG 885 ==
LOC: GERO 11:56
PROVIDERS: ADMIT Psychiatry & Neurology Psychiatry; ATTEND Psychiatry & Neurology Psychiatry
DX: F29 Unspecified psychosis not due to a substance or known physiological condition (principal); N17.9 Acute kidney failure, unspecified; F02.81 Dementia in other diseases classified elsewhere, unspecified severity, with behavioral disturbance; G30.9 Alzheimer's disease, unspecified; H40.9 Unspecified glaucoma; I12.9 Hypertensive chronic kidney disease with stage 1 through stage 4 chronic kidney disease, or unspecified chronic kidney disease; N18.9 Chronic kidney disease, unspecified; F32.9 Major depressive disorder, single episode, unspecified; F41.9 Anxiety disorder, unspecified; Z59.0 Homelessness
CPT/HCPCS: 36415-UA; 80051-TC; 80053-TC; 80061-TC; 80074-90; 82948-90; 84443-TC; 85025-TC; 86592-TC; 90899; G0410; Z7610

== ENCOUNTER 2017-10-17 15:33 | Inpatient (IN) | payer MEDICARE, OTHER ==
[2017-10-17 19:57] LABS: EOSINOPHILE ABSOLUTE 0.2 Th/cmm (0.1-0.4); HEMOGLOBIN 13.4 gm/dL (12-16); LYMPHOCYTE ABSOLUTE 0.1 Th/cmm (1.5-3.0); MEAN CELL VOLUME 89.3 fl (80-99); MEAN CORPUSCULAR HEMOGLOBIN 30.3 pg (27.0-31.0); MEAN PLATELET VOLUME 7.7 fl; MONOCYTE ABSOLUTE 1.9 Th/cmm (0.3-1.0); NEUTROPHILE ABSOLUTE 2.9 Th/cmm (1.8-8.0); PLATELET COUNT 143 Th/cmm (150-400); RED CELL DISTRIBUTION WIDTH 12.6 % (11.5-20.0); WHITE BLOOD COUNT 5.1 Th/cmm (4.8-10.8)
[2017-10-17 19:58] LABS: HEMATOCRIT 39.3 % (41.0-60)
[2017-10-17 20:16] LABS: ALB/GLOB RATIO 1.5 (1.0-1.8); ALBUMIN 3.7 gm/dL (4.2-5.5); ALKALINE PHOSPHATASE 59 U/L (34-104); ANION GAP 8.6 (7.0-16.0); BILIRUBIN,TOTAL 0.3 mg/dL (0.3-1.0); BUN - UREA NITROGEN 21 mg/dL (7-25); CALCIUM SERUM 8.7 mg/dL (8.6-10.3); CARBON DIOXIDE 29.5 mEq/L (21.0-31.0); CHLORIDE 105 mEq/L (98-107); CREATININE - SERUM 1.2 mg/dL (0.7-1.3); GLUCOSE 100 mg/dL (70-105); POTASSIUM SERUM 4.1 mEq/L (3.5-5.1); SGOT 14 U/L (13-39); SGPT/ALT 9 U/L (7-52); SODIUM SERUM 139 mEq/L (136-145); TOTAL PROTEIN,SERUM 6.1 gm/dL (6.0-8.3)
--- NOTE | 2017-10-17 20:38 | ED Physician Chart ---
ED Chief Complaint/HPI - Patient Information Date Seen:: 10/17/17 Time Seen:: 20:30 History of Present Illness:: pt initially seen and examined by Dr. Timmons who also dictated a full ER physician medical screening note the additional diagnostic information is to be included in this charting by Dr. Madrigal. Allergies:: Allergies Allergy/AdvReac Type Severity Reaction Status Date / Time No Known Allergies Allergy Verified 10/17/17 16:26 Vitals:: Vital Signs - 8 hr 10/17/17 15:50 Temp 97.7 F HR 69 RR 18 BP 114/69 O2 Sat % 94 Historian:: Patient, EMS Review:: Nurse's Note Reviewed, EMS run form Reviewed ED Labs/Radiology/EKG Results - Lab Results Results: Laboratory Tests 10/17/17 10/17/17 19:48 19:48 WBC 5.1 RBC 4.40 Hgb 13.4 Hct 39.3 L D MCV 89.3 MCH 30.3 MCHC Differential 34.0 RDW 12.6 Plt Count 143 L MPV 7.7 Sodium 139 Potassium 4.1 Chloride 105 Carbon Dioxide 29.5 Anion Gap 8.6 BUN 21 Creatinine 1.2 Est GFR ( Amer) TNP Est GFR (Non-Af Amer) TNP BUN/Creatinine Ratio 17.5 Glucose 100 Calcium 8.7 Total Bilirubin 0.3 AST 14 ALT 9 Alkaline Phosphatase 59 Total Protein 6.1 Albumin 3.7 L Globulin 2.4 Albumin/Globulin Ratio 1.5 Laboratory Results - last 24 hr 10/17/17 10/17/17 19:48 19:48 WBC 5.1 RBC 4.40 Hgb 13.4 Hct 39.3 L D MCV 89.3 MCH 30.3 MCHC Differential 34.0 RDW 12.6 Plt Count 143 L MPV 7.7 Sodium 139 Potassium 4.1 Chloride 105 Carbon Dioxide 29.5 Anion Gap 8.6 BUN 21 Creatinine 1.2 Est GFR ( Amer) TNP Est GFR (Non-Af Amer) TNP BUN/Creatinine Ratio 17.5 Glucose 100 Calcium 8.7 Total Bilirubin 0.3 AST 14 ALT 9 Alkaline Phosphatase 59 Total Protein 6.1 Albumin 3.7 L Globulin 2.4 Albumin/Globulin Ratio 1.5 - Radiology Results Results: CXR borderline cardiomegaly hyperexpanded lung wharton no acute rib fracture no acute pneumothorax no acute infiltrate otherwise negative CXR for acute illness ER READ - EKG Interpretations Comments:: EKG NSR 63 normal axis low voltage extremity leads no acute ischemic ST elevation minimal ST elevation lateral leads no acute ST depression pt with no chest pain at this visit otherwise normal EKG ER READ ED Assessment - Assessment General Assessment: pt in stable condition while in ER. no acute medical complaint. pt examined by Dr. Madrigal ED Septic Shock - . Is Septic Shock (SBP<90, OR Lactate>4 mmol\L) present?: No - <6hrs of presentation: Vital Signs: Vital Signs - 8 hr 10/17/17 15:50 Temp 97.7 F HR 69 RR 18 BP 114/69 O2 Sat % 94
--- NOTE | 2017-10-17 20:47 | ER Physician Documentation ---
DATE OF SERVICE: 10/17/2017 EMERGENCY ROOM EVALUATION AND TREATMENT HISTORY OF PRESENT ILLNESS: The patient was brought from the nursing facility for evaluation as the patient was rude to the nurses and was not very polite to the patient's and other things. The history was taken by talking to the patient as well as talking to 2 directory operator people who were present over there. According to the directory operator, the patient never had any agitation or any kind of abnormal behavior or aggressive behavior here, but from the [facility]. He is coming from ____ [facility]; he coming from there, telephone number there is [phone]. The patient had aggressive behavior towards the staff and MD notified and ordered the transfer the patient to this hospital. The patient was evaluated. The patient said that the nurses were trying to put a tape on his nose where he had an injury to the nose and he did not like that and that is why he was upset and he does not want the nurses or anybody else to bother him unless things need to be done. He said sometimes they might touch his genital part. I am not sure at what time, what situation, I am not aware of that and he said if anybody bothers you what you going to do to and he does not want them to put tape on the nose; that was his main complaint. The patient was sent here by Dr. Lux to be seen medically and see if the patient needs any psychiatric workup or investigation. If the medically the patient is cleared, then the patient's diagnosis of the transfer was aggressive behavior towards staff and the resident dementia, altered mental status. History of chief complaint is essentially same as mentioned above. PAST MEDICAL HISTORY: Essentially the same. He smokes 1 cigarette here and there, but otherwise he lives over there. He has no significant complaint as far as he is concerned. REVIEW OF SYSTEMS: EYES: No history of double vision, blurring or blindness. No history of any cataract surgery. ENDOCRINE: No history of diabetes mellitus, hypo or hyperthyroidism. No history of any electrolyte imbalance or etc. No blood workup was done over there. GI: No history of diarrhea, constipation or abdominal pain. HEART: No history of any chest pain, angina pectoris, myocardial infarction, rheumatic fever, valvular heart disease, pericardial disease, cardiomyopathy, etc. GENITOURINARY: No history of any burning, frequency, dysuria. PHYSICAL EXAMINATION: GENERAL: The patient appears to be awake, alert and oriented. VITAL SIGNS: Done in the [facility] showed temperature to be 98.1, pulse of 79, respirations 19 and blood pressure 128/60 and oxygen saturation is 98%. CENTRAL NERVOUS SYSTEM: The patient does not have any TIA, stroke or any abnormal behavior at the present moment while I was examining. He appeared to be calm and poised. The patient has a bruise on the right nose, which he fell down and hurt his nose. He was advised by his ear, nose and throat physician or some other physicians not to put any tape or anything, otherwise the nose shows that there might be a nasal fracture or something of that thing, but nothing acutely need to be done. ENT appears to be otherwise normal other than the things I described above. Central nervous system is within normal limits. Other than the patient carries a diagnosis of dementia, hypertension and a bruise on the skin on the nose that I see here. NECK: Supple. CHEST: Clear. Occasional rhonchi are audible. No rales. ABDOMEN: Soft, benign and negative. Liver and spleen not enlarged. No free fluid in the abdominal cavity. CLINICAL IMPRESSION: The patient was sent here for not behaving well with the staff and a resident of the [facility]; and hence, the patient was sent over here. We will check the patient's lab, EKG, chest x-ray and see if there is anything wrong with the patient and then decide whether the patient needs to be admitted here or patient needs to go to a psych facility for a psych evaluation or etc., that needs to be done or not. The patient had consultation for audiology, dental consult, eye consult, Podiatry consult. The patient did have a TB screening test. The patient's lesion on the nose is present for the past 21 days. I see here on 09/12/2017. The nurse, Mary Ann Mccabe, signed that was present over there. In conclusion, the patient was sent here for agitation and dementia and aggressive behavior towards colleagues. Other diagnoses include seborrheic dermatitis of the scalp in the past, ____ damage counseling was done. The patient has basal carcinoma of the nose where curettage and destruction was done, so he did not have a fall. He had a basal cell carcinoma that was removed and he was told by the surgeon to just keep it empty open. The patient also has actinic keratosis and history of patient smoking in the past. Some labs that came from the other hospital includes a glucose to be 84, BUN 22, creatinine 1, sodium 141, potassium 4.1, chloride 107, CO2 of 28, calcium of 8.5. The patient's height is 5 feet 11 inches and weight 144 pounds. No known allergies. We will put the orders and see and the night physician will come and further assess the situation as to what needs to be done. JOB# [id number]
[2017-10-17 21:54] LABS: BAND NEUTROPHILE 0 % (0-10); BASOPHIL 0 % (0-3); EOSINOPHIL 2 % (0-5); LYMPHOCYTE 36 % (20-50); MONOCYTE 4 % (2-10); NEUTROPHILS 58 % (40-80); PLATELET ESTIMATE ADEQUATE (NORMAL); PLATELET MORPHOLOGY NORMAL (NORMAL); TOTAL CELLS COUNTED 100
[2017-10-17 22:10] LABS: URINE MICROSCOPIC INDICATED? YES; URINE SOURCE RANDOM
[2017-10-17 22:12] LABS: URINE BILIRUBIN NEGATIVE (NEGATIVE); URINE BLOOD NEGATIVE (NEGATIVE); URINE GLUCOSE (UA) NEGATIVE (NEGATIVE); URINE KETONE NEGATIVE (NEGATIVE); URINE LEUKOCYTE ESTERASE NEGATIVE (NEGATIVE); URINE NITRATE NEGATIVE (NEGATIVE); URINE PH 7.5 (4.6 - 8.0); URINE PROTEIN NEGATIVE (NEGATIVE); URINE UROBILINOGEN 0.2 E.U./dL (0.2 - 1.0)
[2017-10-17 22:34] LABS: URINE CLARITY CLEAR (CLEAR); URINE COLOR YELLOW
[2017-10-17 22:35] LABS: URINE BACTERIA OCCASIONAL /hpf (NONE SEEN); URINE EPITHELIAL CELLS OCCASIONAL /lpf (FEW); URINE RBC 0-2 /hpf (0-5); URINE WBC 0-2 /hpf (0-5)
[2017-10-17 23:24] VITALS: BP 134/74
--- NOTE | 2017-10-18 08:01 | Diagnostic Imaging Report ---
Portable chest x-ray Time: 1956 hours History: pneumonia Allowing for portable technique the heart size is normal. No focal pulmonary parenchymal processes. No hilar or mediastinal abnormalities. Impression: No acute abnormalities.
[2017-10-18] MEDS ORDERED: Maalox 30 mL Cup PO PRN (19:27)
[2017-10-18] MEDS ORDERED: Magnesium Hydroxide (MOM) 30 mL UDC PO PRN (19:27)
--- NOTE | 2017-10-18 20:03 | History & Physical ---
ADMIT DATE: 10/17/2017 HISTORY OF PRESENT ILLNESS: The patient is a 72-year-old male with long history of dementia, degenerative joint disease, chronic constipation, admitted to our [facility] under Dr. Mckeon's service for evaluation and treatment. The patient has chest pain, shortness of breath, nausea, vomiting, fever, or chills. PAST MEDICAL HISTORY: Significant for degenerative joint disease, dementia, chronic constipation. PAST SURGICAL HISTORY: No recent surgery. ALLERGIES: None. MEDICATIONS: Follow admission reconciliation. SOCIAL HISTORY: No smoking, alcohol, or drugs. FAMILY HISTORY: Noncontributory. REVIEW OF SYSTEMS: IMMUNOSYSTEM: History of chronic renal disorder. CARDIOVASCULAR SYSTEM: No coronary artery disease. ENDOCRINE SYSTEM: No diabetes or thyroid problem. GASTROINTESTINAL SYSTEM: No upper or lower GI bleeding. NEUROLOGICAL SYSTEM: No seizure disorder. MUSCULOSKELETAL SYSTEM: No muscular dystrophy. HEMATOLOGIC SYSTEM: No bleeding tendencies. RESPIRATORY SYSTEM: No asthma. GENITOURINARY SYSTEM: No dysuria or hematuria. PHYSICAL EXAMINATION: GENERAL: He is awake, alert, mildly confused. VITAL SIGNS: Temperature 99, heart rate 72, blood pressure 124/68. HEENT: Normocephalic. Pupils reacting to light and accommodation. Sclerae are clear. NECK: Supple. Negative for lymphadenopathy, JVD, or bruit. CHEST: Bilaterally normal. No rhonchi or wheezing. HEART: S1, S2 normal. No murmur or gallop rhythm. ABDOMEN: Soft, bowel sounds positive. EXTREMITIES: No edema. NEUROLOGIC: He is awake, alert, mildly confused. No focal motor deficits. Cranial nerves 2-12 are intact. SKIN: Significant for a lesion on the right side of the nose bridge. LABORATORY DATA: White blood cell 5.1, hemoglobin 13.4, hematocrit 39.3, platelet 143. Sodium 139, potassium 4.1, BUN 21, creatinine 0.2. ASSESSMENT: 1. Degenerative joint disease. 2. Chronic constipation. 3. Skin lesion of the right side of the nose. 4. Dementia. PLAN: The patient admitted to the hospital under Dr. Mckeon's service. MEDICAL PROBLEMS ADDRESSED DURING HOSPITALIZATION: Dementia. MEDICAL PROBLEMS ADDRESSED AT DISCHARGE. Lesion on the right side of the nose skin. The patient cleared for physical therapy. JOB# [id number]
[2017-10-18] MEDS: Artificial Tear Ophth Oint 3.5 Gm Tube EACH EYE SCH (20:38)
[2017-10-19] MEDS: Multivitamin Tab PO SCH (08:41)
[2017-10-19] MEDS: Artificial Tear Ophth Oint 3.5 Gm Tube EACH EYE SCH ×3 (08:42→21:17)
--- NOTE | 2017-10-19 11:55 | Psychosocial Evaluation ---
DATE OF SERVICE: CHIEF COMPLAINT: Agitation and aggressive behavior. HISTORY OF PRESENT ILLNESS: The patient is 72-year-old male with history of dementia and psychosis. The patient has been aggressive and agitated in [facility] where he lives. He also has been having delusion and paranoia and he has been saying that "I am a doctor." He thinks that he is a physician and going around, acting like he is a physician. He also has been angry with the staff and gets physically agitated. PAST PSYCHIATRIC HISTORY: The patient denies any psychiatric issues or problems. PAST MEDICAL HISTORY: The patient has hypertension as well as lymphoma. The patient also has lesion in his nose and it is not clear what it is. SOCIAL HISTORY: The patient said that he has never and has no children. He used to work renovations. He denies any alcohol or street drug use or smoking cigarettes. ALLERGIES: No known allergies. MENTAL STATUS EXAMINATION: The patient appears slightly older than his stated age. Anxious. Irritable mood. Flat affect. Thought processes are circumstantial with occasional flight of ideas. The patient denies auditory or visual hallucinations, but he seems to be preoccupied and paranoid. The patient has grandiose delusions. The patient is alert and oriented to time, place, person, and situation. Impaired immediate and recent memory, but intact remote memory. Poor insight and poor judgment. ASSESSMENT: PRIMARY DIAGNOSIS: Unspecified psychosis. SECONDARY DIAGNOSIS: Dementia, moderate, with psychotic features. TREATMENT PLAN: We will monitor the patient's behavior and condition closely. We will start Seroquel in a dose of 25 mg twice a day and will adjust the dose. ESTIMATED LENGTH OF STAY: 5-7 days. THE PATIENT'S STRENGTHS AND WEAKNESSES: The patient's strength is not clear at this time. Weaknesses is ineffective coping and poor impulse control. AFTER DISCHARGE PLANS: Outpatient treatment and followup and the patient will return back to [place]. Continue adjusting medications as an outpatient. CRITERIA FOR DISCHARGE: The patient will not be agitated or psychotic and will stabilize psychotropic medications and will establish outpatient treatment plans. [facility]# [id number]
--- NOTE | 2017-10-19 20:16 | Internal Medicine Prog Note ---
Internal Medicine Subjective - Subjective Service Date: 10/19/17 Patient seen and examined:: with staff Patient is:: awake, ambulating, talking, confused Per staff patient has:: no adverse event (HE FEELS WELL) Internal Medicine Objective - Results Result Diagrams: 10/17/17 19:48 10/17/17 19:48 Recent Labs: Laboratory Last Values WBC 5.1 Th/cmm (4.8-10.8) 10/17/17 19:48 RBC 4.40 Mil/cmm (3.80-5.80) 10/17/17 19:48 Hgb 13.4 gm/dL (12-16) 10/17/17 19:48 Hct 39.3 % (41.0-60) L D 10/17/17 19:48 MCV 89.3 fl (80-99) 10/17/17 19:48 MCH 30.3 pg (27.0-31.0) 10/17/17 19:48 MCHC Differential 34.0 pg (28.0-36.0) 10/17/17 19:48 RDW 12.6 % (11.5-20.0) 10/17/17 19:48 Plt Count 143 Th/cmm (150-400) L 10/17/17 19:48 MPV 7.7 fl 10/17/17 19:48 Band Neutrophils % 0 % (0-10) 10/17/17 19:48 Neutrophils (Manual) 58 % (40-80) 10/17/17 19:48 Lymphocytes 36 % (20-50) 10/17/17 19:48 Monocytes 4 % (2-10) 10/17/17 19:48 Eosinophils 2 % (0-5) 10/17/17 19:48 Basophils 0 % (0-3) 10/17/17 19:48 Platelet Estimate ADEQUATE (NORMAL) 10/17/17 19:48 Platelet Morphology NORMAL (NORMAL) 10/17/17 19:48 RBC Morph Micro Appear NORMAL (NORMAL) 10/17/17 19:48 Sodium 139 mEq/L (136-145) 10/17/17 19:48 Potassium 4.1 mEq/L (3.5-5.1) 10/17/17 19:48 Chloride 105 mEq/L (98-107) 10/17/17 19:48 Carbon Dioxide 29.5 mEq/L (21.0-31.0) 10/17/17 19:48 Anion Gap 8.6 (7.0-16.0) 10/17/17 19:48 BUN 21 mg/dL (7-25) 10/17/17 19:48 Creatinine 1.2 mg/dL (0.7-1.3) 10/17/17 19:48 Est GFR ( Amer) TNP 10/17/17 19:48 Est GFR (Non-Af Amer) TNP 10/17/17 19:48 BUN/Creatinine Ratio 17.5 10/17/17 19:48 Glucose 100 mg/dL (70-105) 10/17/17 19:48 Calcium 8.7 mg/dL (8.6-10.3) 10/17/17 19:48 Total Bilirubin 0.3 mg/dL (0.3-1.0) 10/17/17 19:48 AST 14 U/L (13-39) 10/17/17 19:48 ALT 9 U/L (7-52) 10/17/17 19:48 Alkaline Phosphatase 59 U/L (34-104) 10/17/17 19:48 C-Reactive Protein < 0.1 mg/dL (0.0-0.9) 10/17/17 19:48 Total Protein 6.1 gm/dL (6.0-8.3) 10/17/17 19:48 Albumin 3.7 gm/dL (4.2-5.5) L 10/17/17 19:48 Globulin 2.4 gm/dL 10/17/17 19:48 Albumin/Globulin Ratio 1.5 (1.0-1.8) 10/17/17 19:48 Urine Source RANDOM 10/17/17 22:00 Urine Color YELLOW 10/17/17 22:00 Urine Clarity CLEAR (CLEAR) 10/17/17 22:00 Urine pH 7.5 (4.6 - 8.0) 10/17/17 22:00 Ur Specific [place] 1.020 (1.005-1.030) 10/17/17 22:00 Urine Protein NEGATIVE mg/dL (NEGATIVE) 10/17/17 22:00 Urine Glucose (UA) NEGATIVE mg/dL (NEGATIVE) 10/17/17 22:00 Urine Ketones NEGATIVE mg/dL (NEGATIVE) 10/17/17 22:00 Urine Blood NEGATIVE (NEGATIVE) 10/17/17 22:00 Urine Nitrate NEGATIVE (NEGATIVE) 10/17/17 22:00 Urine Bilirubin NEGATIVE (NEGATIVE) 10/17/17 22:00 Urine Urobilinogen 0.2 E.U./dL (0.2 - 1.0) 10/17/17 22:00 Ur Leukocyte Esterase NEGATIVE (NEGATIVE) 10/17/17 22:00 Urine RBC 0-2 /hpf (0-5) H 10/17/17 22:00 Urine WBC 0-2 /hpf (0-5) 10/17/17 22:00 Ur Epithelial Cells OCCASIONAL /lpf (FEW) 10/17/17 22:00 Urine Bacteria OCCASIONAL /hpf (NONE SEEN) 10/17/17 22:00 - Physical Exam Vitals and I&O: Vital Signs Temp 97.8 F 10/19/17 14:00 Pulse 81 10/19/17 14:00 Resp 20 10/19/17 14:00 BP 112/72 10/19/17 14:00 Pulse Ox 97 10/19/17 14:00 Intake & Output 10/19/17 10/19/17 10/20/17 06:59 18:59 06:59 Intake Total 250 800 Balance 250 800 Intake: Oral 250 800 Other: # Voids 1 3 # Bowel Movements 1 Active Medications: Current Medications Acetaminophen (Tylenol) 650 mg PO Q4HR PRN PRN Reason: Mild Pain / Temp above 100 Stop: 12/17/17 19:26 Al Hydrox/Mg Hydrox/Simethicone (Maalox) 30 ml PO Q4HR PRN PRN Reason: GI DISTRESS Stop: 12/17/17 19:26 Artificial Tears (Lubrifresh Ophth Oint) 2 appl EACH EYE TID [facility] Stop: 12/17/17 20:59 Last Admin: 10/19/17 14:14 Dose: 2 appl Bisacodyl (Dulcolax 10 Mg Supp) 10 mg RC DAILY [facility] Stop: 12/18/17 08:59 Last Admin: 10/19/17 08:41 Dose: Not Given Brimonidine Tartrate (Alphagan 0.1% Ophth Soln) 1 drop EACH EYE TID [facility] Stop: 12/17/17 20:59 Last Admin: 10/19/17 14:14 Dose: 1 drop Docusate Sodium (Colace) 100 mg PO DAILY [facility] Stop: 12/18/17 08:59 Last Admin: 10/19/17 08:41 Dose: 100 mg Donepezil HCl (Aricept) 10 mg PO HS [facility] Stop: 12/18/17 20:59 Magnesium Hydroxide (Milk Of Magnesia) 30 ml PO HS PRN PRN Reason: Constipation Stop: 12/17/17 19:26 Miscellaneous (Melatonin [Melatonin]) 3 mg PO HS [facility] Stop: 12/17/17 20:59 Multivitamins/Vitamin C (Theragran) 1 tab PO DAILY [facility] Stop: 12/18/17 08:59 Last Admin: 10/19/17 08:41 Dose: 1 tab Quetiapine Fumarate (Seroquel) 25 mg PO BID [facility] PRN Reason: Protocol Stop: 12/17/17 08:59 Last Admin: 10/19/17 17:05 Dose: 25 mg General: alert HEENT: NC/AT, PERRLA, EOMI, anicteric sclerae, throat clear Neck: Supple, No JVD, No thyromegaly, +2 carotid pulse wo bruit, No LAD Lungs: CTAB Cardiovascular: RRR, Normal S1, Normal S2, without murmur Abdomen: non-tender, non-distended Extremities: clear Neurological: no change Internal Medicine Assmt/Plan - Assessment Assessment: 1.DJD. 2.CHRONIC CONSTIPATION. 3.DEMENTIA. - Plan Plan: CONTINUE ON CURRENT MEDICATION AND DIET.
--- NOTE | 2017-10-20 00:57 | Progress Notes ---
DATE: 10/19/2017 SUBJECTIVE: Chart reviewed and the patient interviewed. Also, discussed the patient's condition with the staff and reviewed records and labs. The patient is still anxious and he is still forgetful and slightly confused. The patient also is angry and hardly answers questions and seems to be upset while answering my questions. Also, confused and when asked him about where he lives his answer was "here." He also is still easily agitated and forgetful. Otherwise, the patient is slightly easier to redirect him and personal hygiene seems to be slightly improved. ASSESSMENT: The patient is still psychotic and agitated. TREATMENT PLAN: We will continue monitoring his behavior and his condition. Also, the patient started on Seroquel 25 mg twice a day yesterday. We will increase Aricept to 10 mg every day and will continue to follow up behavior and condition closely. JOB# [id number]
[2017-10-20] MEDS: Artificial Tear Ophth Oint 3.5 Gm Tube EACH EYE SCH ×4 (08:46→21:00)
[2017-10-20] MEDS: Multivitamin Tab PO SCH (08:47)
[2017-10-20] MEDS: OLANZapine 5 mg Oral Disintegrating Tab PO SCH ×2 (13:31→16:27)
--- NOTE | 2017-10-20 18:38 | Internal Medicine Prog Note ---
Internal Medicine Subjective - Subjective Service Date: 10/20/17 Patient seen and examined:: with staff (HE FEELS WELL) Patient is:: awake, ambulating, talking, confused Per staff patient has:: no adverse event (HE FEELS WELL) Internal Medicine Objective - Results Result Diagrams: 10/17/17 19:48 10/17/17 19:48 Recent Labs: Laboratory Last Values WBC 5.1 Th/cmm (4.8-10.8) 10/17/17 19:48 RBC 4.40 Mil/cmm (3.80-5.80) 10/17/17 19:48 Hgb 13.4 gm/dL (12-16) 10/17/17 19:48 Hct 39.3 % (41.0-60) L D 10/17/17 19:48 MCV 89.3 fl (80-99) 10/17/17 19:48 MCH 30.3 pg (27.0-31.0) 10/17/17 19:48 MCHC Differential 34.0 pg (28.0-36.0) 10/17/17 19:48 RDW 12.6 % (11.5-20.0) 10/17/17 19:48 Plt Count 143 Th/cmm (150-400) L 10/17/17 19:48 MPV 7.7 fl 10/17/17 19:48 Band Neutrophils % 0 % (0-10) 10/17/17 19:48 Neutrophils (Manual) 58 % (40-80) 10/17/17 19:48 Lymphocytes 36 % (20-50) 10/17/17 19:48 Monocytes 4 % (2-10) 10/17/17 19:48 Eosinophils 2 % (0-5) 10/17/17 19:48 Basophils 0 % (0-3) 10/17/17 19:48 Platelet Estimate ADEQUATE (NORMAL) 10/17/17 19:48 Platelet Morphology NORMAL (NORMAL) 10/17/17 19:48 RBC Morph Micro Appear NORMAL (NORMAL) 10/17/17 19:48 Sodium 139 mEq/L (136-145) 10/17/17 19:48 Potassium 4.1 mEq/L (3.5-5.1) 10/17/17 19:48 Chloride 105 mEq/L (98-107) 10/17/17 19:48 Carbon Dioxide 29.5 mEq/L (21.0-31.0) 10/17/17 19:48 Anion Gap 8.6 (7.0-16.0) 10/17/17 19:48 BUN 21 mg/dL (7-25) 10/17/17 19:48 Creatinine 1.2 mg/dL (0.7-1.3) 10/17/17 19:48 Est GFR ( Amer) TNP 10/17/17 19:48 Est GFR (Non-Af Amer) TNP 10/17/17 19:48 BUN/Creatinine Ratio 17.5 10/17/17 19:48 Glucose 100 mg/dL (70-105) 10/17/17 19:48 Calcium 8.7 mg/dL (8.6-10.3) 10/17/17 19:48 Total Bilirubin 0.3 mg/dL (0.3-1.0) 10/17/17 19:48 AST 14 U/L (13-39) 10/17/17 19:48 ALT 9 U/L (7-52) 10/17/17 19:48 Alkaline Phosphatase 59 U/L (34-104) 10/17/17 19:48 C-Reactive Protein < 0.1 mg/dL (0.0-0.9) 10/17/17 19:48 Total Protein 6.1 gm/dL (6.0-8.3) 10/17/17 19:48 Albumin 3.7 gm/dL (4.2-5.5) L 10/17/17 19:48 Globulin 2.4 gm/dL 10/17/17 19:48 Albumin/Globulin Ratio 1.5 (1.0-1.8) 10/17/17 19:48 Urine Source RANDOM 10/17/17 22:00 Urine Color YELLOW 10/17/17 22:00 Urine Clarity CLEAR (CLEAR) 10/17/17 22:00 Urine pH 7.5 (4.6 - 8.0) 10/17/17 22:00 Ur Specific [place] 1.020 (1.005-1.030) 10/17/17 22:00 Urine Protein NEGATIVE mg/dL (NEGATIVE) 10/17/17 22:00 Urine Glucose (UA) NEGATIVE mg/dL (NEGATIVE) 10/17/17 22:00 Urine Ketones NEGATIVE mg/dL (NEGATIVE) 10/17/17 22:00 Urine Blood NEGATIVE (NEGATIVE) 10/17/17 22:00 Urine Nitrate NEGATIVE (NEGATIVE) 10/17/17 22:00 Urine Bilirubin NEGATIVE (NEGATIVE) 10/17/17 22:00 Urine Urobilinogen 0.2 E.U./dL (0.2 - 1.0) 10/17/17 22:00 Ur Leukocyte Esterase NEGATIVE (NEGATIVE) 10/17/17 22:00 Urine RBC 0-2 /hpf (0-5) H 10/17/17 22:00 Urine WBC 0-2 /hpf (0-5) 10/17/17 22:00 Ur Epithelial Cells OCCASIONAL /lpf (FEW) 10/17/17 22:00 Urine Bacteria OCCASIONAL /hpf (NONE SEEN) 10/17/17 22:00 - Physical Exam Vitals and I&O: Vital Signs Temp 99.3 F 10/20/17 14:00 Pulse 86 10/20/17 14:00 Resp 18 10/20/17 14:00 BP 105/71 10/20/17 14:00 Pulse Ox 98 10/20/17 14:00 Intake & Output 10/19/17 10/20/17 10/20/17 18:59 06:59 18:59 Intake Total 800 1200 Balance 800 1200 Intake: Oral 800 1200 Other: # Voids 3 4 # Bowel Movements 1 1 Active Medications: Current Medications Acetaminophen (Tylenol) 650 mg PO Q4HR PRN PRN Reason: Mild Pain / Temp above 100 Stop: 12/17/17 19:26 Al Hydrox/Mg Hydrox/Simethicone (Maalox) 30 ml PO Q4HR PRN PRN Reason: GI DISTRESS Stop: 12/17/17 19:26 Artificial Tears (Lubrifresh Ophth Oint) 2 appl EACH EYE TID [facility] Stop: 12/17/17 20:59 Last Admin: 10/20/17 13:31 Dose: Not Given Bisacodyl (Dulcolax 10 Mg Supp) 10 mg RC DAILY [facility] Stop: 12/18/17 08:59 Last Admin: 10/20/17 08:47 Dose: Not Given Brimonidine Tartrate (Alphagan 0.1% Ophth Soln) 1 drop EACH EYE TID [facility] Stop: 12/17/17 20:59 Last Admin: 10/20/17 13:31 Dose: Not Given Docusate Sodium (Colace) 100 mg PO DAILY [facility] Stop: 12/18/17 08:59 Last Admin: 10/20/17 08:47 Dose: 100 mg Donepezil HCl (Aricept) 10 mg PO HS [facility] Stop: 12/18/17 20:59 Last Admin: 10/19/17 21:18 Dose: Not Given Magnesium Hydroxide (Milk Of Magnesia) 30 ml PO HS PRN PRN Reason: Constipation Stop: 12/17/17 19:26 Multivitamins/Vitamin C (Theragran) 1 tab PO DAILY [facility] Stop: 12/18/17 08:59 Last Admin: 10/20/17 08:47 Dose: 1 tab Olanzapine (Zyprexa Zydis) 5 mg PO BID [facility] PRN Reason: Protocol Stop: 12/19/17 08:59 Last Admin: 10/20/17 16:27 Dose: Not Given General: alert HEENT: NC/AT, PERRLA, EOMI, anicteric sclerae, throat clear Neck: Supple, No JVD, No thyromegaly, +2 carotid pulse wo bruit, No LAD Lungs: CTAB Cardiovascular: RRR, Normal S1, Normal S2, without murmur Abdomen: non-tender, non-distended Extremities: clear Neurological: no change Internal Medicine Assmt/Plan - Assessment Assessment: 1.DJD. 2.CHRONIC CONSTIPATION. 3.DEMENTIA. - Plan Plan: CONTINUE ON CURRENT MEDICATION AND DIET.
--- NOTE | 2017-10-21 05:31 | Progress Notes ---
DATE: SUBJECTIVE: Chart reviewed and the patient interviewed. Also discussed the patient's condition with the staff and reviewed records and labs. The patient continued to be confused and suspicious and paranoid. The patient also is still restless and is still easily agitated. Also, still has difficulty following directions and is interacting minimally with others. He also is still uncooperative with the staff and the patient refused medications yesterday for no apparent reason. Also, during the discussion, the patient is not giving any reason for why he is refusing medications. ASSESSMENT: The patient is still psychotic and agitated. TREATMENT PLAN: Continue to monitor his behavior and his condition closely. Also, we will change Seroquel to Zyprexa for better compliance with medications. Also, we will continue working on behavioral modification and we will continue to follow up. [facility]# [id number]
[2017-10-21] MEDS: Artificial Tear Ophth Oint 3.5 Gm Tube EACH EYE SCH ×3 (09:02→20:45)
[2017-10-21] MEDS: OLANZapine 5 mg Oral Disintegrating Tab PO SCH ×2 (09:02→16:07)
[2017-10-21] MEDS: Multivitamin Tab PO SCH (09:02)
[2017-10-21] MEDS: Non-Formulary Item 1 EA (Melatonin [Melatonin] 3 MG) PO SCH ×2 (14:44→14:45)
--- NOTE | 2017-10-21 17:41 | Internal Medicine Prog Note ---
Internal Medicine Subjective - Subjective Service Date: 10/21/17 Patient seen and examined:: without staff (HE FEELS WELL.NO PAIN OR SOB.) Patient is:: awake, ambulating, talking, confused Per staff patient has:: no adverse event (HE FEELS WELL) Internal Medicine Objective - Results Result Diagrams: 10/17/17 19:48 10/17/17 19:48 Recent Labs: Laboratory Last Values WBC 5.1 Th/cmm (4.8-10.8) 10/17/17 19:48 RBC 4.40 Mil/cmm (3.80-5.80) 10/17/17 19:48 Hgb 13.4 gm/dL (12-16) 10/17/17 19:48 Hct 39.3 % (41.0-60) L D 10/17/17 19:48 MCV 89.3 fl (80-99) 10/17/17 19:48 MCH 30.3 pg (27.0-31.0) 10/17/17 19:48 MCHC Differential 34.0 pg (28.0-36.0) 10/17/17 19:48 RDW 12.6 % (11.5-20.0) 10/17/17 19:48 Plt Count 143 Th/cmm (150-400) L 10/17/17 19:48 MPV 7.7 fl 10/17/17 19:48 Band Neutrophils % 0 % (0-10) 10/17/17 19:48 Neutrophils (Manual) 58 % (40-80) 10/17/17 19:48 Lymphocytes 36 % (20-50) 10/17/17 19:48 Monocytes 4 % (2-10) 10/17/17 19:48 Eosinophils 2 % (0-5) 10/17/17 19:48 Basophils 0 % (0-3) 10/17/17 19:48 Platelet Estimate ADEQUATE (NORMAL) 10/17/17 19:48 Platelet Morphology NORMAL (NORMAL) 10/17/17 19:48 RBC Morph Micro Appear NORMAL (NORMAL) 10/17/17 19:48 Sodium 139 mEq/L (136-145) 10/17/17 19:48 Potassium 4.1 mEq/L (3.5-5.1) 10/17/17 19:48 Chloride 105 mEq/L (98-107) 10/17/17 19:48 Carbon Dioxide 29.5 mEq/L (21.0-31.0) 10/17/17 19:48 Anion Gap 8.6 (7.0-16.0) 10/17/17 19:48 BUN 21 mg/dL (7-25) 10/17/17 19:48 Creatinine 1.2 mg/dL (0.7-1.3) 10/17/17 19:48 Est GFR ( Amer) TNP 10/17/17 19:48 Est GFR (Non-Af Amer) TNP 10/17/17 19:48 BUN/Creatinine Ratio 17.5 10/17/17 19:48 Glucose 100 mg/dL (70-105) 10/17/17 19:48 Calcium 8.7 mg/dL (8.6-10.3) 10/17/17 19:48 Total Bilirubin 0.3 mg/dL (0.3-1.0) 10/17/17 19:48 AST 14 U/L (13-39) 10/17/17 19:48 ALT 9 U/L (7-52) 10/17/17 19:48 Alkaline Phosphatase 59 U/L (34-104) 10/17/17 19:48 C-Reactive Protein < 0.1 mg/dL (0.0-0.9) 10/17/17 19:48 Total Protein 6.1 gm/dL (6.0-8.3) 10/17/17 19:48 Albumin 3.7 gm/dL (4.2-5.5) L 10/17/17 19:48 Globulin 2.4 gm/dL 10/17/17 19:48 Albumin/Globulin Ratio 1.5 (1.0-1.8) 10/17/17 19:48 Urine Source RANDOM 10/17/17 22:00 Urine Color YELLOW 10/17/17 22:00 Urine Clarity CLEAR (CLEAR) 10/17/17 22:00 Urine pH 7.5 (4.6 - 8.0) 10/17/17 22:00 Ur Specific [place] 1.020 (1.005-1.030) 10/17/17 22:00 Urine Protein NEGATIVE mg/dL (NEGATIVE) 10/17/17 22:00 Urine Glucose (UA) NEGATIVE mg/dL (NEGATIVE) 10/17/17 22:00 Urine Ketones NEGATIVE mg/dL (NEGATIVE) 10/17/17 22:00 Urine Blood NEGATIVE (NEGATIVE) 10/17/17 22:00 Urine Nitrate NEGATIVE (NEGATIVE) 10/17/17 22:00 Urine Bilirubin NEGATIVE (NEGATIVE) 10/17/17 22:00 Urine Urobilinogen 0.2 E.U./dL (0.2 - 1.0) 10/17/17 22:00 Ur Leukocyte Esterase NEGATIVE (NEGATIVE) 10/17/17 22:00 Urine RBC 0-2 /hpf (0-5) H 10/17/17 22:00 Urine WBC 0-2 /hpf (0-5) 10/17/17 22:00 Ur Epithelial Cells OCCASIONAL /lpf (FEW) 10/17/17 22:00 Urine Bacteria OCCASIONAL /hpf (NONE SEEN) 10/17/17 22:00 - Physical Exam Vitals and I&O: Vital Signs Temp 97.6 F 10/21/17 16:20 Pulse 67 10/21/17 16:20 Resp 19 10/21/17 16:20 BP 122/71 10/21/17 16:20 Pulse Ox 98 10/21/17 16:20 Intake & Output 10/20/17 10/21/17 10/21/17 18:59 06:59 18:59 Intake Total 1200 500 Balance 1200 500 Intake: Oral 1200 500 Other: # Voids 4 2 # Bowel Movements 1 0 Active Medications: Current Medications Acetaminophen (Tylenol) 650 mg PO Q4HR PRN PRN Reason: Mild Pain / Temp above 100 Stop: 12/17/17 19:26 Al Hydrox/Mg Hydrox/Simethicone (Maalox) 30 ml PO Q4HR PRN PRN Reason: GI DISTRESS Stop: 12/17/17 19:26 Artificial Tears (Lubrifresh Ophth Oint) 2 appl EACH EYE TID [facility] Stop: 12/17/17 20:59 Last Admin: 10/21/17 14:11 Dose: Not Given Bisacodyl (Dulcolax 10 Mg Supp) 10 mg RC DAILY [facility] Stop: 12/18/17 08:59 Last Admin: 10/21/17 09:02 Dose: Not Given Brimonidine Tartrate (Alphagan 0.1% Ophth Soln) 1 drop EACH EYE TID [facility] Stop: 12/17/17 20:59 Last Admin: 10/21/17 14:11 Dose: Not Given Docusate Sodium (Colace) 100 mg PO DAILY [facility] Stop: 12/18/17 08:59 Last Admin: 10/21/17 09:02 Dose: 100 mg Donepezil HCl (Aricept) 10 mg PO HS [facility] Stop: 12/18/17 20:59 Last Admin: 10/20/17 21:37 Dose: 10 mg Magnesium Hydroxide (Milk Of Magnesia) 30 ml PO HS PRN PRN Reason: Constipation Stop: 12/17/17 19:26 Multivitamins/Vitamin C (Theragran) 1 tab PO DAILY [facility] Stop: 12/18/17 08:59 Last Admin: 10/21/17 09:02 Dose: 1 tab Olanzapine (Zyprexa Zydis) 10 mg PO BID [facility] PRN Reason: Protocol Stop: 12/19/17 08:59 Last Admin: 10/21/17 16:07 Dose: 10 mg General: alert HEENT: NC/AT, PERRLA, EOMI, anicteric sclerae, throat clear Neck: Supple, No JVD, No thyromegaly, +2 carotid pulse wo bruit, No LAD Lungs: CTAB Cardiovascular: RRR, Normal S1, Normal S2, without murmur Abdomen: non-tender, non-distended Extremities: clear Neurological: no change Internal Medicine Assmt/Plan - Assessment Assessment: 1.DJD. 2.CHRONIC CONSTIPATION. 3.DEMENTIA. - Plan Plan: CONTINUE ON CURRENT MEDICATION AND DIET. Nutritional Asmnt/Malnutr-PDOC - Dietary Evaluation Malnutrition Findings (Please click <Entered> for more info): Nutritional Asmnt/Malnutrition Start: 10/21/17 16: 42 Text: Status: Complete Freq: Document 10/21/17 16:42 LCHENG (Rec: 10/21/17 16:44 [email or web address]) Nutritional Asmnt/Malnutrition Patient General Information Nutritional Screening Moderate Risk Diagnosis psychosis Pertinent Medical Hx/Surgical Hx DJD, dementia, chronic constipation Subjective Information Pt was smoking outside at time of visit, not able to visit. Per notes, Po [place] 100%. Current Diet Order/ Nutrition Support [facility] soft ground Pertinent Medications colace, theragran Pertinent Labs 10/17 Alb 3.7 Nutritional Hx/Data Height 1.8 m Height (Calculated Centimeters) 180.3 Current Weight (lbs) 65.317 kg Weight (Calculated Kilograms) 65.3 Weight (Calculated Grams) 16798.3 [place] Body Weight 172 % [place] Body Weight 84 Body Mass Index (BMI) 20.0 Weight Status Approriate GI Symptoms GI Symptoms None Last BM 10/20 Difficult in: None Skin Integrity/Comment: leision on bridge of nose Estimated Nutritional Goals BEE in Kcals: Using Current wt Calories/Kcals/Kg 25-30 Kcals Calculated 7599-8492 Protein: Using Current wt Protein g/k Protein Calculated 66 Fluid: ml 1650-1980ml (1ml/kcal) Nutritional Problem No current Nutrition Prob Problem N/A Malnutrition Alert Protein-Calorie Malnutrition N/A Is there a minimum of two criteria No selected? Query Text:Check all the applicable criteria. A minimum of two criteria are recommended for diagnosis of either severe or non-severe malnutrition. Intervention/Recommendation Comments 1. Continue with current diet as ordered. 2. Monitor PO intake, wt, labs and skin integrity 3. F/U as low risk in 7 days, 2/2 Expected Outcomes/Goals Expected Outcomes/Goals 1. PO intake to meet at least 75% of nutritional needs. 2. Wt stability, skin to remain intact, labs to approach WNL.
--- NOTE | 2017-10-22 06:20 | Progress Notes ---
DATE: SUBJECTIVE: Chart reviewed and the patient interviewed. Also discussed the patient's condition with the staff and reviewed records and labs. The patient is still suspicious and is still paranoid. The patient also is still easily agitated. The patient also is in angry mood and he is having difficulty following staff directions. He refused his eyedrops yesterday. Otherwise, the patient is compliant with taking medications and he did take Zyprexa yesterday. During interview, the patient is disheveled and he is still agitated and rambling and is suspicious and is still paranoid. ASSESSMENT: The patient is still psychotic and can be dangerous to others. TREATMENT PLAN: We will increase Zyprexa to 10 mg twice a day. Also, continue monitoring his behavior and his condition closely. JOB# [id number]
[2017-10-22] MEDS: Artificial Tear Ophth Oint 3.5 Gm Tube EACH EYE SCH ×3 (09:45→20:08)
[2017-10-22] MEDS: Multivitamin Tab PO SCH (10:00)
[2017-10-22] MEDS: OLANZapine 5 mg Oral Disintegrating Tab PO SCH (10:00)
--- NOTE | 2017-10-22 20:21 | Internal Medicine Prog Note ---
Internal Medicine Subjective - Subjective Service Date: 10/22/17 Patient seen and examined:: with staff Patient is:: awake, ambulating, talking, confused Per staff patient has:: no adverse event (HE FEELS WELL) Internal Medicine Objective - Results Result Diagrams: 10/17/17 19:48 10/17/17 19:48 Recent Labs: Laboratory Last Values WBC 5.1 Th/cmm (4.8-10.8) 10/17/17 19:48 RBC 4.40 Mil/cmm (3.80-5.80) 10/17/17 19:48 Hgb 13.4 gm/dL (12-16) 10/17/17 19:48 Hct 39.3 % (41.0-60) L D 10/17/17 19:48 MCV 89.3 fl (80-99) 10/17/17 19:48 MCH 30.3 pg (27.0-31.0) 10/17/17 19:48 MCHC Differential 34.0 pg (28.0-36.0) 10/17/17 19:48 RDW 12.6 % (11.5-20.0) 10/17/17 19:48 Plt Count 143 Th/cmm (150-400) L 10/17/17 19:48 MPV 7.7 fl 10/17/17 19:48 Band Neutrophils % 0 % (0-10) 10/17/17 19:48 Neutrophils (Manual) 58 % (40-80) 10/17/17 19:48 Lymphocytes 36 % (20-50) 10/17/17 19:48 Monocytes 4 % (2-10) 10/17/17 19:48 Eosinophils 2 % (0-5) 10/17/17 19:48 Basophils 0 % (0-3) 10/17/17 19:48 Platelet Estimate ADEQUATE (NORMAL) 10/17/17 19:48 Platelet Morphology NORMAL (NORMAL) 10/17/17 19:48 RBC Morph Micro Appear NORMAL (NORMAL) 10/17/17 19:48 Sodium 139 mEq/L (136-145) 10/17/17 19:48 Potassium 4.1 mEq/L (3.5-5.1) 10/17/17 19:48 Chloride 105 mEq/L (98-107) 10/17/17 19:48 Carbon Dioxide 29.5 mEq/L (21.0-31.0) 10/17/17 19:48 Anion Gap 8.6 (7.0-16.0) 10/17/17 19:48 BUN 21 mg/dL (7-25) 10/17/17 19:48 Creatinine 1.2 mg/dL (0.7-1.3) 10/17/17 19:48 Est GFR ( Amer) TNP 10/17/17 19:48 Est GFR (Non-Af Amer) TNP 10/17/17 19:48 BUN/Creatinine Ratio 17.5 10/17/17 19:48 Glucose 100 mg/dL (70-105) 10/17/17 19:48 Calcium 8.7 mg/dL (8.6-10.3) 10/17/17 19:48 Total Bilirubin 0.3 mg/dL (0.3-1.0) 10/17/17 19:48 AST 14 U/L (13-39) 10/17/17 19:48 ALT 9 U/L (7-52) 10/17/17 19:48 Alkaline Phosphatase 59 U/L (34-104) 10/17/17 19:48 C-Reactive Protein < 0.1 mg/dL (0.0-0.9) 10/17/17 19:48 Total Protein 6.1 gm/dL (6.0-8.3) 10/17/17 19:48 Albumin 3.7 gm/dL (4.2-5.5) L 10/17/17 19:48 Globulin 2.4 gm/dL 10/17/17 19:48 Albumin/Globulin Ratio 1.5 (1.0-1.8) 10/17/17 19:48 Urine Source RANDOM 10/17/17 22:00 Urine Color YELLOW 10/17/17 22:00 Urine Clarity CLEAR (CLEAR) 10/17/17 22:00 Urine pH 7.5 (4.6 - 8.0) 10/17/17 22:00 Ur Specific [place] 1.020 (1.005-1.030) 10/17/17 22:00 Urine Protein NEGATIVE mg/dL (NEGATIVE) 10/17/17 22:00 Urine Glucose (UA) NEGATIVE mg/dL (NEGATIVE) 10/17/17 22:00 Urine Ketones NEGATIVE mg/dL (NEGATIVE) 10/17/17 22:00 Urine Blood NEGATIVE (NEGATIVE) 10/17/17 22:00 Urine Nitrate NEGATIVE (NEGATIVE) 10/17/17 22:00 Urine Bilirubin NEGATIVE (NEGATIVE) 10/17/17 22:00 Urine Urobilinogen 0.2 E.U./dL (0.2 - 1.0) 10/17/17 22:00 Ur Leukocyte Esterase NEGATIVE (NEGATIVE) 10/17/17 22:00 Urine RBC 0-2 /hpf (0-5) H 10/17/17 22:00 Urine WBC 0-2 /hpf (0-5) 10/17/17 22:00 Ur Epithelial Cells OCCASIONAL /lpf (FEW) 10/17/17 22:00 Urine Bacteria OCCASIONAL /hpf (NONE SEEN) 10/17/17 22:00 - Physical Exam Vitals and I&O: Vital Signs Temp 97.4 F 10/22/17 14:00 Pulse 81 10/22/17 14:00 Resp 20 10/22/17 14:00 BP 122/57 10/22/17 14:00 Pulse Ox 97 10/22/17 14:00 Intake & Output 10/22/17 10/22/17 10/23/17 06:59 18:59 06:59 Intake Total 800 Balance 800 Intake: Oral 800 Other: # Voids 3 # Bowel Movements 1 Active Medications: Current Medications Acetaminophen (Tylenol) 650 mg PO Q4HR PRN PRN Reason: Mild Pain / Temp above 100 Stop: 12/17/17 19:26 Al Hydrox/Mg Hydrox/Simethicone (Maalox) 30 ml PO Q4HR PRN PRN Reason: GI DISTRESS Stop: 12/17/17 19:26 Artificial Tears (Lubrifresh Ophth Oint) 2 appl EACH EYE TID [facility] Stop: 12/17/17 20:59 Last Admin: 10/22/17 20:08 Dose: 2 appl Bisacodyl (Dulcolax 10 Mg Supp) 10 mg RC DAILY [facility] Stop: 12/18/17 08:59 Last Admin: 10/22/17 09:45 Dose: 10 mg Brimonidine Tartrate (Alphagan 0.1% Ophth Soln) 1 drop EACH EYE TID [facility] Stop: 12/17/17 20:59 Last Admin: 10/22/17 20:08 Dose: 1 drop Docusate Sodium (Colace) 100 mg PO DAILY [facility] Stop: 12/18/17 08:59 Last Admin: 10/22/17 10:00 Dose: 100 mg Donepezil HCl (Aricept) 10 mg PO HS [facility] Stop: 12/18/17 20:59 Last Admin: 10/22/17 20:08 Dose: 10 mg Magnesium Hydroxide (Milk Of Magnesia) 30 ml PO HS PRN PRN Reason: Constipation Stop: 12/17/17 19:26 Multivitamins/Vitamin C (Theragran) 1 tab PO DAILY [facility] Stop: 12/18/17 08:59 Last Admin: 10/22/17 10:00 Dose: 1 tab Olanzapine (Zyprexa Zydis) 10 mg PO BID [facility] PRN Reason: Protocol Stop: 12/19/17 08:59 Last Admin: 10/22/17 10:00 Dose: 10 mg General: alert HEENT: NC/AT, PERRLA, EOMI, anicteric sclerae, throat clear Neck: Supple, No JVD, No thyromegaly, +2 carotid pulse wo bruit, No LAD Lungs: CTAB Cardiovascular: RRR, Normal S1, Normal S2, without murmur Abdomen: non-tender, non-distended Extremities: clear Neurological: no change Internal Medicine Assmt/Plan - Assessment Assessment: 1.DJD. 2.CHRONIC CONSTIPATION. 3.DEMENTIA. - Plan Plan: CONTINUE ON CURRENT MEDICATION AND DIET. Nutritional Asmnt/Malnutr-PDOC - Dietary Evaluation Malnutrition Findings (Please click <Entered> for more info): Nutritional Asmnt/Malnutrition Start: 10/21/17 16: 42 Text: Status: Complete Freq: Document 10/21/17 16:42 LCHENG (Rec: 10/21/17 16:44 [email or web address]) Nutritional Asmnt/Malnutrition Patient General Information Nutritional Screening Moderate Risk Diagnosis psychosis Pertinent Medical Hx/Surgical Hx DJD, dementia, chronic constipation Subjective Information Pt was smoking outside at time of visit, not able to visit. Per notes, Po itnake 100%. Current Diet Order/ Nutrition Support [facility] soft ground Pertinent Medications colace, theragran Pertinent Labs 10/17 Alb 3.7 Nutritional Hx/Data Height 1.8 m Height (Calculated Centimeters) 180.3 Current Weight (lbs) 65.317 kg Weight (Calculated Kilograms) 65.3 Weight (Calculated Grams) 94229.3 [place] Body Weight 172 % [place] Body Weight 84 Body Mass Index (BMI) 20.0 Weight Status Approriate GI Symptoms GI Symptoms None Last BM 10/20 Difficult in: None Skin Integrity/Comment: leision on bridge of nose Estimated Nutritional Goals BEE in Kcals: Using Current wt Calories/Kcals/Kg 25-30 Kcals Calculated 4771-6795 Protein: Using Current wt Protein g/k Protein Calculated 66 Fluid: ml 1650-1980ml (1ml/kcal) Nutritional Problem No current Nutrition Prob Problem N/A Malnutrition Alert Protein-Calorie Malnutrition N/A Is there a minimum of two criteria No selected? Query Text:Check all the applicable criteria. A minimum of two criteria are recommended for diagnosis of either severe or non-severe malnutrition. Intervention/Recommendation Comments 1. Continue with current diet as ordered. 2. Monitor PO intake, wt, labs and skin integrity 3. F/U as low risk in 7 days, 2/2 Expected Outcomes/Goals Expected Outcomes/Goals 1. PO intake to meet at least 75% of nutritional needs. 2. Wt stability, skin to remain intact, labs to approach WNL.
[2017-10-23] MEDS: Multivitamin Tab PO SCH (08:41)
[2017-10-23] MEDS: OLANZapine 5 mg Oral Disintegrating Tab PO SCH ×2 (08:41→17:06)
[2017-10-23] MEDS: Artificial Tear Ophth Oint 3.5 Gm Tube EACH EYE SCH ×3 (08:43→21:15)
--- NOTE | 2017-10-23 18:32 | Internal Medicine Prog Note ---
Internal Medicine Subjective - Subjective Service Date: 10/23/17 Patient seen and examined:: without staff (he feels well) Patient is:: awake, ambulating, talking, confused Per staff patient has:: no adverse event (HE FEELS WELL) Internal Medicine Objective - Results Result Diagrams: 10/17/17 19:48 10/17/17 19:48 Recent Labs: Laboratory Last Values WBC 5.1 Th/cmm (4.8-10.8) 10/17/17 19:48 RBC 4.40 Mil/cmm (3.80-5.80) 10/17/17 19:48 Hgb 13.4 gm/dL (12-16) 10/17/17 19:48 Hct 39.3 % (41.0-60) L D 10/17/17 19:48 MCV 89.3 fl (80-99) 10/17/17 19:48 MCH 30.3 pg (27.0-31.0) 10/17/17 19:48 MCHC Differential 34.0 pg (28.0-36.0) 10/17/17 19:48 RDW 12.6 % (11.5-20.0) 10/17/17 19:48 Plt Count 143 Th/cmm (150-400) L 10/17/17 19:48 MPV 7.7 fl 10/17/17 19:48 Band Neutrophils % 0 % (0-10) 10/17/17 19:48 Neutrophils (Manual) 58 % (40-80) 10/17/17 19:48 Lymphocytes 36 % (20-50) 10/17/17 19:48 Monocytes 4 % (2-10) 10/17/17 19:48 Eosinophils 2 % (0-5) 10/17/17 19:48 Basophils 0 % (0-3) 10/17/17 19:48 Platelet Estimate ADEQUATE (NORMAL) 10/17/17 19:48 Platelet Morphology NORMAL (NORMAL) 10/17/17 19:48 RBC Morph Micro Appear NORMAL (NORMAL) 10/17/17 19:48 Sodium 139 mEq/L (136-145) 10/17/17 19:48 Potassium 4.1 mEq/L (3.5-5.1) 10/17/17 19:48 Chloride 105 mEq/L (98-107) 10/17/17 19:48 Carbon Dioxide 29.5 mEq/L (21.0-31.0) 10/17/17 19:48 Anion Gap 8.6 (7.0-16.0) 10/17/17 19:48 BUN 21 mg/dL (7-25) 10/17/17 19:48 Creatinine 1.2 mg/dL (0.7-1.3) 10/17/17 19:48 Est GFR ( Amer) TNP 10/17/17 19:48 Est GFR (Non-Af Amer) TNP 10/17/17 19:48 BUN/Creatinine Ratio 17.5 10/17/17 19:48 Glucose 100 mg/dL (70-105) 10/17/17 19:48 Calcium 8.7 mg/dL (8.6-10.3) 10/17/17 19:48 Total Bilirubin 0.3 mg/dL (0.3-1.0) 10/17/17 19:48 AST 14 U/L (13-39) 10/17/17 19:48 ALT 9 U/L (7-52) 10/17/17 19:48 Alkaline Phosphatase 59 U/L (34-104) 10/17/17 19:48 C-Reactive Protein < 0.1 mg/dL (0.0-0.9) 10/17/17 19:48 Total Protein 6.1 gm/dL (6.0-8.3) 10/17/17 19:48 Albumin 3.7 gm/dL (4.2-5.5) L 10/17/17 19:48 Globulin 2.4 gm/dL 10/17/17 19:48 Albumin/Globulin Ratio 1.5 (1.0-1.8) 10/17/17 19:48 Urine Source RANDOM 10/17/17 22:00 Urine Color YELLOW 10/17/17 22:00 Urine Clarity CLEAR (CLEAR) 10/17/17 22:00 Urine pH 7.5 (4.6 - 8.0) 10/17/17 22:00 Ur Specific [place] 1.020 (1.005-1.030) 10/17/17 22:00 Urine Protein NEGATIVE mg/dL (NEGATIVE) 10/17/17 22:00 Urine Glucose (UA) NEGATIVE mg/dL (NEGATIVE) 10/17/17 22:00 Urine Ketones NEGATIVE mg/dL (NEGATIVE) 10/17/17 22:00 Urine Blood NEGATIVE (NEGATIVE) 10/17/17 22:00 Urine Nitrate NEGATIVE (NEGATIVE) 10/17/17 22:00 Urine Bilirubin NEGATIVE (NEGATIVE) 10/17/17 22:00 Urine Urobilinogen 0.2 E.U./dL (0.2 - 1.0) 10/17/17 22:00 Ur Leukocyte Esterase NEGATIVE (NEGATIVE) 10/17/17 22:00 Urine RBC 0-2 /hpf (0-5) H 10/17/17 22:00 Urine WBC 0-2 /hpf (0-5) 10/17/17 22:00 Ur Epithelial Cells OCCASIONAL /lpf (FEW) 10/17/17 22:00 Urine Bacteria OCCASIONAL /hpf (NONE SEEN) 10/17/17 22:00 - Physical Exam Vitals and I&O: Vital Signs Temp 98.4 F 10/23/17 14:00 Pulse 81 10/23/17 14:00 Resp 18 10/23/17 14:00 BP 109/84 10/23/17 14:00 Pulse Ox 96 10/23/17 14:00 Intake & Output 10/22/17 10/23/17 10/23/17 18:59 06:59 18:59 Intake Total 800 1800 Balance 800 1800 Intake: Oral 800 1800 Other: # Voids 3 4 # Bowel Movements 1 1 Active Medications: Current Medications Acetaminophen (Tylenol) 650 mg PO Q4HR PRN PRN Reason: Mild Pain / Temp above 100 Stop: 12/17/17 19:26 Al Hydrox/Mg Hydrox/Simethicone (Maalox) 30 ml PO Q4HR PRN PRN Reason: GI DISTRESS Stop: 12/17/17 19:26 Artificial Tears (Lubrifresh Ophth Oint) 2 appl EACH EYE TID [facility] Stop: 12/17/17 20:59 Last Admin: 10/23/17 13:51 Dose: 2 appl Bisacodyl (Dulcolax 10 Mg Supp) 10 mg RC DAILY [facility] Stop: 12/18/17 08:59 Last Admin: 10/23/17 08:52 Dose: Not Given Brimonidine Tartrate (Alphagan 0.1% Ophth Soln) 1 drop EACH EYE TID [facility] Stop: 12/17/17 20:59 Last Admin: 10/23/17 13:51 Dose: 1 drop Docusate Sodium (Colace) 100 mg PO DAILY [facility] Stop: 12/18/17 08:59 Last Admin: 10/23/17 08:41 Dose: 100 mg Donepezil HCl (Aricept) 10 mg PO HS [facility] Stop: 12/18/17 20:59 Last Admin: 10/22/17 20:08 Dose: 10 mg Magnesium Hydroxide (Milk Of Magnesia) 30 ml PO HS PRN PRN Reason: Constipation Stop: 12/17/17 19:26 Multivitamins/Vitamin C (Theragran) 1 tab PO DAILY [facility] Stop: 12/18/17 08:59 Last Admin: 10/23/17 08:41 Dose: 1 tab Olanzapine (Zyprexa Zydis) 10 mg PO BID [facility] PRN Reason: Protocol Stop: 12/19/17 08:59 Last Admin: 10/23/17 17:06 Dose: 10 mg General: alert HEENT: NC/AT, PERRLA, EOMI, anicteric sclerae, throat clear Neck: Supple, No JVD, No thyromegaly, +2 carotid pulse wo bruit, No LAD Lungs: CTAB Cardiovascular: RRR, Normal S1, Normal S2, without murmur Abdomen: non-tender, non-distended Extremities: clear Neurological: no change Internal Medicine Assmt/Plan - Assessment Assessment: 1.DJD. 2.CHRONIC CONSTIPATION. 3.DEMENTIA. - Plan Plan: CONTINUE ON CURRENT MEDICATION AND DIET. Nutritional Asmnt/Malnutr-PDOC - Dietary Evaluation Malnutrition Findings (Please click <Entered> for more info): Nutritional Asmnt/Malnutrition Start: 10/21/17 16: 42 Text: Status: Complete Freq: Document 10/21/17 16:42 LCHENG (Rec: 10/21/17 16:44 [email or web address]) Nutritional Asmnt/Malnutrition Patient General Information Nutritional Screening Moderate Risk Diagnosis psychosis Pertinent Medical Hx/Surgical Hx DJD, dementia, chronic constipation Subjective Information Pt was smoking outside at time of visit, not able to visit. Per notes, Po itnake 100%. Current Diet Order/ Nutrition Support [facility] soft ground Pertinent Medications colace, theragran Pertinent Labs 10/17 Alb 3.7 Nutritional Hx/Data Height 1.8 m Height (Calculated Centimeters) 180.3 Current Weight (lbs) 65.317 kg Weight (Calculated Kilograms) 65.3 Weight (Calculated Grams) 37855.3 [place] Body Weight 172 % [place] Body Weight 84 Body Mass Index (BMI) 20.0 Weight Status Approriate GI Symptoms GI Symptoms None Last BM 10/20 Difficult in: None Skin Integrity/Comment: leision on bridge of nose Estimated Nutritional Goals BEE in Kcals: Using Current wt Calories/Kcals/Kg 25-30 Kcals Calculated 4679-0126 Protein: Using Current wt Protein g/k Protein Calculated 66 Fluid: ml 1650-1980ml (1ml/kcal) Nutritional Problem No current Nutrition Prob Problem N/A Malnutrition Alert Protein-Calorie Malnutrition N/A Is there a minimum of two criteria No selected? Query Text:Check all the applicable criteria. A minimum of two criteria are recommended for diagnosis of either severe or non-severe malnutrition. Intervention/Recommendation Comments 1. Continue with current diet as ordered. 2. Monitor PO intake, wt, labs and skin integrity 3. F/U as low risk in 7 days, 2/2 Expected Outcomes/Goals Expected Outcomes/Goals 1. PO intake to meet at least 75% of nutritional needs. 2. Wt stability, skin to remain intact, labs to approach WNL.
--- NOTE | 2017-10-23 22:23 | Progress Notes ---
DATE: SUBJECTIVE: The patient was seen and evaluated. The patient's chart reviewed. Dr. Clemons Covering for Dr. Mckeon Said. Overnight nursing staff reporting mostly been isolative, withdrawn. Today on [id number] evaluation, the patient is extremely guarded, minimizing, observed to be responding, disheveled, and paranoid. MENTAL STATUS EXAMINATION: Disheveled, paranoid, and delusional. ASSESSMENT AND PLAN: The patient is a 72-year-old male who continues to be disorganized, paranoid. We will continue with the current medication regimen as he was recently increased olanzapine with 10 mg p.o. b.i.d., Aricept at 10 mg p.o. every day to target the patient still delusional state. JOB# [id number]
[2017-10-24] MEDS: OLANZapine 5 mg Oral Disintegrating Tab PO SCH (09:07)
[2017-10-24] MEDS: Multivitamin Tab PO SCH (09:07)
[2017-10-24] MEDS: Artificial Tear Ophth Oint 3.5 Gm Tube EACH EYE SCH (09:09)
--- NOTE | 2017-10-24 14:37 | Progress Notes ---
DATE: SUBJECTIVE: The patient was seen and evaluated. The patient's chart reviewed. This is Dr. Clemons covering for Dr. Mckeon. Overnight nursing staff reported the patient continues mostly being isolating in his room, disengaged, responding. Today on [id number] evaluation, the patient very suspicious and paranoid about the medical doctor. He denies any side effects of medications, he is tolerating. MENTAL STATUS EXAMINATION: Paranoid, delusional, responding. ASSESSMENT AND PLAN: The patient is a 72-year-old male with history of schizophrenia who continues to respond heavily. We will continue with the current medication regimen as olanzapine was recently increased to 10 mg p.o. b.i.d. to target the patient's severe psychotic symptoms ____ and showing some mild improvement with the recent augmentation. JOB# [id number]
--- NOTE | 2017-10-24 23:29 | Progress Notes ---
DATE: 10/24/2017 Case was discussed with staff of patient, reviewed records. Covering for Dr. Mckeon. The patient seems to be showing progress. He was alert. He was smiling when I talked to him, he was feeding himself in the dining room. He was able to tell me the date by looking at the board. He should be going to [facility]. He seems to be doing well. He tolerated the increase in his medication with no side effects, no sedation, no nausea, no extrapyramidal symptoms. Apparently, Dr. Mckeon called this morning and ordered him to be discharged and he is no longer posing any danger to himself or others. He is sleeping better, eating better and I do not disagree with Dr. Guo' decision and he can be discharged to a lesser level of care since he is going to SNF facility and he is not acting anyway dangerous and will continue to follow up with the psychiatrist, primary care physician and a therapist. JOB# [id number]
--- NOTE | 2017-11-11 08:29 | Discharge Summary ---
DATE OF DISCHARGE: 10/24/2017 AGE: 72. SEX: Male. PHYSICIAN: Dr. Mckeon. FINAL DIAGNOSIS: PRIMARY DIAGNOSIS: Unspecified psychosis. SECONDARY DIAGNOSIS: Dementia, moderate, with psychotic features. REASON FOR HOSPITALIZATION: The patient was admitted to the hospital because of increased paranoia and increased agitation and irritability and aggressive in the care home where he lives. The patient also had grandiose delusion and he was talking about him being a boxer. HOSPITAL COURSE: The patient continued to be irritable and agitated. Also, continued to be paranoid and continued to have grandiose delusions. He also was having difficulty following staff directions. He started to take Zyprexa and he was compliant with medications with no side effect of medications. Finally, the patient's affect was brighter. The patient was less agitated and less irritable. Also, interacting more with others. The patient was accepted back in [facility] and patient was discharged there. Physical exam of the patient shows no major medical problems. AFTER DISCHARGE PLANS: The patient went to [facility] with plan to follow up there. JOB# [id number]
== END 2017-10-24 13:15 | disposition home or self-care (01) | DRG 885 ==
LOC: ER 15:33 → GERO 21:40
PROVIDERS: ADMIT Psychiatry & Neurology Psychiatry; ATTEND Psychiatry & Neurology Psychiatry
DX: F29 Unspecified psychosis not due to a substance or known physiological condition (principal); F03.91 Unspecified dementia, unspecified severity, with behavioral disturbance; M19.90 Unspecified osteoarthritis, unspecified site; L98.9 Disorder of the skin and subcutaneous tissue, unspecified; F17.210 Nicotine dependence, cigarettes, uncomplicated; C44.311 Basal cell carcinoma of skin of nose; L57.0 Actinic keratosis; K59.09 Other constipation; F41.9 Anxiety disorder, unspecified; F20.9 Schizophrenia, unspecified
CPT/HCPCS: 36415-UA; 71045-TC; 80053-TC; 81001-TC; 85007-TC; 85027-TC; 86141-TC; 93005; G0410; Z7610